=== PATIENT | male | born 1975 | race Caucasian/White ===

== ENCOUNTER 2017-08-30 22:22 | Emergency (ER) | payer MEDICAID, OTHER ==
[2017-08-30 23:37] LABS: BASO % 0.5 % (0.0-1.0); EOS # 0.2 10^3/uL (0.0-0.50); EOS % 2.6 % (0.0-3.0); HEMATOCRIT 43.4 % (42.0-52.0); HEMOGLOBIN 15.5 g/dl (14.0-18.0); IMMATURE GRANULOCYTE % 0.2 % (0-3.0); LYMPH # 2.7 10^3/uL (1.5-4.5); LYMPH % 45.4 % (24.0-44.0); MEAN CORPUSCULAR HEMOGLOBIN 31.4 pg (27.0-33.0); MEAN CORPUSCULAR HGB CONC 35.7 g/dl (32.0-36.5); MONO # 0.6 10^3/uL (0.0-0.8); MONO % 9.4 % (0.0-5.0); NEUTROPHILS # 2.5 10^3/uL (1.8-7.7); NEUTROPHILS % 41.9 % (36.0-66.0); PLATELET COUNT, AUTOMATED 259 10^3/uL (150-450); RED BLOOD COUNT 4.93 10^6/uL (4.30-6.10); RED CELL DISTRIBUTION WIDTH 12.8 % (11.5-14.5); WHITE BLOOD COUNT 5.9 10^3/uL (4.0-10.0)
[2017-08-30] MEDS: GASTROGRAFIN SOLUTION 30ML PO (23:40)
[2017-08-30 23:56] LABS: ALBUMIN 3.9 GM/DL (3.2-5.2); ALBUMIN/GLOBULIN RATIO 0.95 (1.00-1.93); ALKALINE PHOSPHATASE 70 U/L (45-117); ALT/SGPT 997 U/L (12-78); ANION GAP 8 MEQ/L (8-16); AST/SGOT 638 U/L (7-37); BILIRUBIN,DIRECT < 0.1 MG/DL (0.0-0.2); BILIRUBIN,TOTAL 0.4 MG/DL (0.2-1.0); BLOOD UREA NITROGEN 6 MG/DL (7-18); CALCIUM LEVEL 8.6 MG/DL (8.5-10.1); CARBON DIOXIDE LEVEL 26 MEQ/L (21-32); CHLORIDE LEVEL 103 MEQ/L (98-107); CREATININE FOR GFR 0.58 MG/DL (0.70-1.30); ETHYL ALCOHOL (ETHANOL) 0.285 % (0.000-0.010); GLOMERULAR FILTRATION RATE > 60.0 (>60); GLUCOSE, FASTING 95 MG/DL (70-100); LIPASE 247 U/L (73-393); SODIUM LEVEL 137 MEQ/L (136-145)
[2017-08-30] MEDS: NS 1,000 ML IV (23:57)
[2017-08-30] MEDS: METOCLOPRAMIDE INJ 10MG/2ML VIAL (J2765) IV (23:58)
[2017-08-31 00:01] LABS: POTASSIUM SERUM 5.3 MEQ/L (3.5-5.1)
[2017-08-31 00:03] LABS: LACTIC ACID SEPSIS PROTOCOL 2.2 MMOL/L (0.4-2.0)
[2017-08-31] MEDS: GASTROGRAFIN SOLUTION 30ML PO (00:18)
[2017-08-31] MEDS ORDERED: ISOVUE-370 76% 100ML VIAL (Q9967) As Ordered (00:43)
[2017-08-31 01:01] LABS: AMPHETAMINES LEVEL URINE NEGATIVE (NEGATIVE); BARBITURATES URINE NEGATIVE (NEGATIVE); BENZODIAZEPINES URINE NEGATIVE (NEGATIVE); CANNABINOIDS URINE POSITIVE (NEGATIVE); COCAINE METABOLITE URINE NEGATIVE (NEGATIVE); METHADONE URINE NEGATIVE (NEGATIVE); OPIATES URINE NEGATIVE (NEGATIVE); PHENCYCLIDINE URINE NEGATIVE (NEGATIVE)
[2017-08-31] MEDS: NS 500 ML IV (01:08)
== END 2017-08-31 05:30 | disposition home or self-care (01) ==
LOC: M ED 22:22
DX: F10.220 Alcohol dependence with intoxication, uncomplicated (principal); K52.9 Noninfective gastroenteritis and colitis, unspecified; F12.10 Cannabis abuse, uncomplicated; Z87.19 Personal history of other diseases of the digestive system; K57.92 Diverticulitis of intestine, part unspecified, without perforation or abscess without bleeding; F17.200 Nicotine dependence, unspecified, uncomplicated; Z88.8 Allergy status to other drugs, medicaments and biological substances; Z88.5 Allergy status to narcotic agent
CPT/HCPCS: Q9963

== ENCOUNTER 2017-09-20 18:22 | Emergency (ER) | payer MEDICAID ==
[2017-09-20] MEDS: PHENobarbital 30 MG TAB PO (19:25)
== END 2017-09-20 20:49 | disposition home or self-care (01) ==
LOC: M ED 18:22
DX: Z76.0 Encounter for issue of repeat prescription (principal); F32.9 Major depressive disorder, single episode, unspecified; F10.20 Alcohol dependence, uncomplicated; K21.9 Gastro-esophageal reflux disease without esophagitis; F17.200 Nicotine dependence, unspecified, uncomplicated; Z79.899 Other long term (current) drug therapy
CPT/HCPCS: 99284

== ENCOUNTER 2017-09-21 11:26 | Inpatient (IN) | payer MEDICAID, OTHER ==
[2017-09-21] MEDS: NICOTINE 21MG/24HR 1 EA TRANSDERMAL TD (09:00)
[2017-09-21] MEDS: LORazepam 2 MG TAB PO (12:55)
[2017-09-21] MEDS: cloNIDine 0.2 MG TAB PO ×2 (12:55→18:43)
[2017-09-21 13:00] LABS: BASO % 0.7 % (0.0-1.0); EOS # 0.1 10^3/uL (0.0-0.50); EOS % 2.2 % (0.0-3.0); HEMATOCRIT 40.2 % (42.0-52.0); HEMOGLOBIN 14.4 g/dl (13.5-17.5); LYMPH # 1.8 10^3/uL (1.5-4.5); LYMPH % 34.1 % (24.0-44.0); MEAN CORPUSCULAR HEMOGLOBIN 32.4 pg (27.0-33.0); MEAN CORPUSCULAR HGB CONC 35.8 g/dl (32.0-36.5); MEAN CORPUSCULAR VOLUME 90.5 fl (80.0-96.0); MONO # 0.5 10^3/uL (0.0-0.8); MONO % 9.9 % (0.0-5.0); NEUTROPHILS # 2.8 10^3/uL (1.8-7.7); NEUTROPHILS % 53.1 % (36.0-66.0); PLATELET COUNT, AUTOMATED 401 10^3/uL (150-450); RED BLOOD COUNT 4.44 10^6/uL (4.30-6.10); RED CELL DISTRIBUTION WIDTH 12.4 % (11.5-14.5); WHITE BLOOD COUNT 5.3 10^3/uL (4.0-10.0)
[2017-09-21 13:29] LABS: AMPHETAMINES LEVEL URINE NEGATIVE (NEGATIVE); BARBITURATES URINE POSITIVE (NEGATIVE); BENZODIAZEPINES URINE POSITIVE (NEGATIVE); CANNABINOIDS URINE NEGATIVE (NEGATIVE); COCAINE METABOLITE URINE NEGATIVE (NEGATIVE); METHADONE URINE NEGATIVE (NEGATIVE); OPIATES URINE NEGATIVE (NEGATIVE); PHENCYCLIDINE URINE NEGATIVE (NEGATIVE)
[2017-09-21 13:40] LABS: ALBUMIN 4.1 GM/DL (3.2-5.2); ALBUMIN/GLOBULIN RATIO 1.14 (1.00-1.93); ALKALINE PHOSPHATASE 55 U/L (45-117); ALT/SGPT 96 U/L (12-78); ANION GAP 9 MEQ/L (8-16); AST/SGOT 39 U/L (7-37); BILIRUBIN,DIRECT 0.1 MG/DL (0.0-0.2); BILIRUBIN,TOTAL 0.3 MG/DL (0.2-1.0); BLOOD UREA NITROGEN 9 MG/DL (7-18); CALCIUM LEVEL 9.2 MG/DL (8.5-10.1); CARBON DIOXIDE LEVEL 25 MEQ/L (21-32); CHLORIDE LEVEL 108 MEQ/L (98-107); CREATININE FOR GFR 0.82 MG/DL (0.70-1.30); ETHYL ALCOHOL (ETHANOL) 0.003 % (0.000-0.010); GLOMERULAR FILTRATION RATE > 60.0 (>60); GLUCOSE, FASTING 84 MG/DL (70-100); LIPASE 150 U/L (73-393); POTASSIUM SERUM 4.4 MEQ/L (3.5-5.1); SALICYLATE LEVEL < 1.7 MG/DL (5.0-30.0); SODIUM LEVEL 142 MEQ/L (136-145); THYROID STIMULATING HORMONE 0.754 uIU/ML (0.358-3.740); TOTAL PROTEIN 7.7 GM/DL (6.4-8.2)
[2017-09-21 13:42] LABS: ACETAMINOPHEN LEVEL < 2.0 UG/ML (10.0-30.0)
[2017-09-21] MEDS ORDERED: ACETAMINOPHEN TAB 650MG DOSE (2X325MG) PO (15:45)
[2017-09-21] MEDS ORDERED: MAALOX 30 ML SUSP *UDC PO (15:45)
[2017-09-21] MEDS ORDERED: MOM 30ML SUSPENSION UDC PO (15:45)
[2017-09-21] MEDS: GABAPENTIN 300 MG CAP PO ×2 (18:42→21:00)
[2017-09-21] MEDS: traZODone 100 MG TAB PO (21:00)
[2017-09-22] MEDS: cloNIDine 0.2 MG TAB PO ×2 (07:00→13:43)
[2017-09-22] MEDS: hydrOXYzine 50 MG TAB PO (07:00)
[2017-09-22] MEDS: NICOTINE 21MG/24HR 1 EA TRANSDERMAL TD (09:00)
[2017-09-22] MEDS: OMEPRAZOLE 20 MG CAP PO (09:03)
[2017-09-22] MEDS: SERTRALINE 100 MG TAB PO (09:03)
[2017-09-22] MEDS: GABAPENTIN 300 MG CAP PO ×2 (09:03→15:32)
[2017-09-22] MEDS: raNITIdine SYRUP 150 MG/10 ML UDC PO (10:52)
[2017-09-22 11:06] LABS: HEMATOCRIT 39.6 % (42.0-52.0); HEMOGLOBIN 14.1 g/dl (13.5-17.5); MEAN CORPUSCULAR HGB CONC 35.6 g/dl (32.0-36.5); MEAN CORPUSCULAR VOLUME 89.8 fl (80.0-96.0); PLATELET COUNT, AUTOMATED 428 10^3/uL (150-450); RED BLOOD COUNT 4.41 10^6/uL (4.30-6.10)
[2017-09-22 11:21] LABS: INR 0.94; PROTHROMBIN TIME 12.6 SECONDS (12.4-14.5)
[2017-09-22 11:33] LABS: ALBUMIN 4.1 GM/DL (3.2-5.2); ALBUMIN/GLOBULIN RATIO 1.14 (1.00-1.93); ALKALINE PHOSPHATASE 54 U/L (45-117); ALT/SGPT 89 U/L (12-78); AMYLASE 31 U/L (25-115); ANION GAP 9 MEQ/L (8-16); AST/SGOT 38 U/L (7-37); BILIRUBIN,TOTAL 0.5 MG/DL (0.2-1.0); BLOOD UREA NITROGEN 10 MG/DL (7-18); CALCIUM LEVEL 9.8 MG/DL (8.5-10.1); CARBON DIOXIDE LEVEL 26 MEQ/L (21-32); CHLORIDE LEVEL 104 MEQ/L (98-107); CREATININE FOR GFR 0.97 MG/DL (0.70-1.30); GLOMERULAR FILTRATION RATE > 60.0 (>60); GLUCOSE, FASTING 106 MG/DL (70-100); LIPASE 156 U/L (73-393); POTASSIUM SERUM 4.5 MEQ/L (3.5-5.1); SODIUM LEVEL 139 MEQ/L (136-145); TOTAL PROTEIN 7.7 GM/DL (6.4-8.2)
[2017-09-22 12:43] LABS: HEPATITIS B SURFACE ANTIGEN NEGATIVE (NEGATIVE)
[2017-09-22 13:00] LABS: HEPATITIS B CORE ANTIBODY IGM NEGATIVE (NEGATIVE)
[2017-09-22] MEDS ORDERED: hydrOXYzine 50 MG TAB PO (13:00)
[2017-09-22 13:10] LABS: HEPATITIS A ANTIBODY IGM NEGATIVE (NEGATIVE)
[2017-09-22] MEDS: NALTREXONE 50 MG TAB PO (13:33)
[2017-09-22 13:44] LABS: HEPATITIS C VIRUS ABY INDEX > 11.0 INDEX (<0.8)
[2017-09-22] MEDS ORDERED: QUEtiapine FUMARATE 50 MG TAB PO (21:00)
[2017-09-26 00:08] LABS: HCV RNA NAA QUALITATIVE Positive (Negative)
== END 2017-09-22 15:40 | disposition home or self-care (01) | DRG 756 ==
LOC: M ED 11:26 → M PSY 17:00
DX: F41.1 Generalized anxiety disorder (principal); R45.851 Suicidal ideations; F19.94 Other psychoactive substance use, unspecified with psychoactive substance-induced mood disorder; F43.9 Reaction to severe stress, unspecified; K21.9 Gastro-esophageal reflux disease without esophagitis; F17.210 Nicotine dependence, cigarettes, uncomplicated; R94.5 Abnormal results of liver function studies; R10.9 Unspecified abdominal pain; Z88.5 Allergy status to narcotic agent; Z79.899 Other long term (current) drug therapy

== ENCOUNTER → 2018-01-15 | Outpatient (REF) | payer OTHER ==
[2018-01-15 15:46] LABS: BASO # 0.1 10^3/uL (0.0-0.2); BASO % 0.7 % (0.0-1.0); EOS # 0.2 10^3/uL (0.0-0.50); EOS % 2.8 % (0.0-3.0); HEMOGLOBIN 14.9 g/dl (13.5-17.5); IMMATURE GRANULOCYTE % 0.1 % (0-3.0); LYMPH # 2.4 10^3/uL (1.5-4.5); LYMPH % 33.9 % (24.0-44.0); MEAN CORPUSCULAR HEMOGLOBIN 31.4 pg (27.0-33.0); MEAN CORPUSCULAR HGB CONC 34.7 g/dl (32.0-36.5); MEAN CORPUSCULAR VOLUME 90.5 fl (80.0-96.0); MONO # 0.7 10^3/uL (0.0-0.8); NEUTROPHILS # 3.7 10^3/uL (1.8-7.7); NEUTROPHILS % 52.5 % (36.0-66.0); PLATELET COUNT, AUTOMATED 346 10^3/uL (150-450); RED BLOOD COUNT 4.75 10^6/uL (4.30-6.10); RED CELL DISTRIBUTION WIDTH 14.7 % (11.5-14.5); WHITE BLOOD COUNT 7.1 10^3/uL (4.0-10.0)
[2018-01-15 16:29] LABS: ALBUMIN 3.8 GM/DL (3.2-5.2); ALBUMIN/GLOBULIN RATIO 1.09 (1.00-1.93); ALKALINE PHOSPHATASE 49 U/L (45-117); ALT/SGPT 113 U/L (12-78); ANION GAP 10 MEQ/L (8-16); AST/SGOT 39 U/L (7-37); BILIRUBIN,TOTAL 0.4 MG/DL (0.2-1.0); BLOOD UREA NITROGEN 6 MG/DL (7-18); CARBON DIOXIDE LEVEL 24 MEQ/L (21-32); CHLORIDE LEVEL 107 MEQ/L (98-107); CREATININE FOR GFR 1.03 MG/DL (0.70-1.30); FREE T4 0.92 NG/DL (0.76-1.46); GLOMERULAR FILTRATION RATE > 60.0 (>60); GLUCOSE, FASTING 123 MG/DL (70-100); POTASSIUM SERUM 3.9 MEQ/L (3.5-5.1); SODIUM LEVEL 141 MEQ/L (136-145); TOTAL PROTEIN 7.3 GM/DL (6.4-8.2)
[2018-01-18 00:08] LABS: HEPATITIS C QUANTITATION 196170 IU/mL (.)
[2018-01-22 08:08] LABS: RPR Non Reactive (Non Reactive); T PALLIDUM ANTIBODIES Positive (Negative); T PALLIDUM IMMUNOBLOT Positive (Negative)
== END ==
LOC: M SFHCPLAZ 14:17
DX: B18.2 Chronic viral hepatitis C (principal); Z20.2 Contact with and (suspected) exposure to infections with a predominantly sexual mode of transmission; K51.80 Other ulcerative colitis without complications; F41.9 Anxiety disorder, unspecified

== ENCOUNTER 2018-01-22 10:51 | Emergency (ER) | payer OTHER | END 2018-01-22 12:59 | disposition home or self-care (01) | LOC: M ED 10:51 | DX: F41.9 Anxiety disorder, unspecified (principal); R94.31 Abnormal electrocardiogram [ECG] [EKG]; M54.9 Dorsalgia, unspecified; G89.29 Other chronic pain; F17.200 Nicotine dependence, unspecified, uncomplicated; Z88.5 Allergy status to narcotic agent; Z79.899 Other long term (current) drug therapy | CPT/HCPCS: 93005 ==

== ENCOUNTER → 2018-01-22 | Outpatient (REF) | LOC: M SMT 10:17 | DX: Z02.9 Encounter for administrative examinations, unspecified (principal) ==

== ENCOUNTER → 2018-02-06 | Outpatient (CLI) | payer OTHER ==
[2018-02-06 14:21] LABS: INR 0.92; PROTHROMBIN TIME 12.5 SECONDS (12.1-14.4)
[2018-02-06 14:22] LABS: PARTIAL THROMBOPLASTIN TIME 25.2 SECONDS (25.4-37.6)
[2018-02-09 00:06] LABS: ALPHA 2-MACROGLOBULIN 106 mg/dL (110-276); ALT 117 IU/L (0-55); APOLIPOPROTEIN A-1 135 mg/dL (101-178); FIBROSIS SCORE 0.06 (0.00-0.21); GGT 120 IU/L (0-65); HAPTOGLOBIN 147 mg/dL (34-200); HEPATITIS C GENOTYPE 1b (.); NECROINFLAM SCORE 0.54 (0.00-0.17); NECROINFLAMM GRADE A2-Moderate activity (.); TOTAL BILIRUBIN 0.2 mg/dL (0.0-1.2)
== END ==
LOC: M LAB 13:37
DX: B18.2 Chronic viral hepatitis C (principal)
CPT/HCPCS: 84460

== ENCOUNTER 2018-02-15 09:10 | Day surgery (SDC) | payer OTHER ==
[~2018-02-15 09:10] MED LIST: LIDOCAINE 2% INJ 100 MG/5 ML SDV (FOR ANES.) As Ordered; PROPOFOL 200 MG/20 ML VIAL As Ordered; fentaNYL 100 MCG/2 ML INJECTION (J3010) As Ordered
[2018-02-15] MEDS ORDERED: NS 1,000 ML IV (09:15)
[2018-02-15] MEDS ORDERED: PROPOFOL 200 MG/20 ML VIAL As Ordered ×2 (11:27→11:38)
[2018-02-15] MEDS ORDERED: MIDAZOLAM INJ 2 MG/2 ML VIAL (J2250) As Ordered (11:28)
== END 2018-02-15 12:37 | disposition home or self-care (01) ==
LOC: M OPP 09:10
DX: K92.1 Melena (principal); D12.3 Benign neoplasm of transverse colon; K64.8 Other hemorrhoids; R10.13 Epigastric pain; R13.10 Dysphagia, unspecified; K29.70 Gastritis, unspecified, without bleeding; K21.9 Gastro-esophageal reflux disease without esophagitis; I10 Essential (primary) hypertension; K76.9 Liver disease, unspecified; B18.2 Chronic viral hepatitis C; M54.89 Other dorsalgia; F41.9 Anxiety disorder, unspecified; F32.9 Major depressive disorder, single episode, unspecified; R06.83 Snoring; F17.210 Nicotine dependence, cigarettes, uncomplicated; F12.10 Cannabis abuse, uncomplicated; Z88.8 Allergy status to other drugs, medicaments and biological substances; Z79.899 Other long term (current) drug therapy
CPT/HCPCS: 45380

== ENCOUNTER 2018-03-08 07:45 | Emergency (ER) | payer OTHER ==
[2018-03-08] MEDS: NS 1,000 ML IV ×4 (08:53→09:45)
[2018-03-08] MEDS: ONDANSETRON 4MG/2ML VIAL (J2405) IV ×2 (08:57)
[2018-03-08] MEDS: LORazepam 2 MG/ML VIAL (J2060) IV ×4 (08:57→09:53)
[2018-03-08] MEDS: PANTOPRAZOLE 40MG INJ (PROTONIX) (C9113) IV ×2 (08:58)
[2018-03-08 09:12] LABS: BASO % 0.6 % (0.0-1.0); EOS # 0.1 10^3/uL (0.0-0.50); EOS % 1.6 % (0.0-3.0); HEMATOCRIT 45.7 % (42.0-52.0); HEMOGLOBIN 15.9 g/dl (13.5-17.5); IMMATURE GRANULOCYTE % 0.2 % (0-3.0); LYMPH # 1.6 10^3/uL (1.5-4.5); LYMPH % 25.4 % (24.0-44.0); MEAN CORPUSCULAR HEMOGLOBIN 32.9 pg (27.0-33.0); MEAN CORPUSCULAR HGB CONC 34.8 g/dl (32.0-36.5); MEAN CORPUSCULAR VOLUME 94.4 fl (80.0-96.0); MONO # 0.8 10^3/uL (0.0-0.8); MONO % 13.1 % (0.0-5.0); NEUTROPHILS # 3.7 10^3/uL (1.8-7.7); NEUTROPHILS % 59.1 % (36.0-66.0); PLATELET COUNT, AUTOMATED 193 10^3/uL (150-450); RED BLOOD COUNT 4.84 10^6/uL (4.30-6.10); RED CELL DISTRIBUTION WIDTH 12.8 % (11.5-14.5); WHITE BLOOD COUNT 6.3 10^3/uL (4.0-10.0)
[2018-03-08 09:30] LABS: INR 0.92; PROTHROMBIN TIME 12.5 SECONDS (12.1-14.4)
[2018-03-08 09:37] LABS: ALBUMIN 3.8 GM/DL (3.2-5.2); ALBUMIN/GLOBULIN RATIO 0.93 (1.00-1.93); ALKALINE PHOSPHATASE 48 U/L (45-117); ALT/SGPT 161 U/L (12-78); ANION GAP 13 MEQ/L (8-16); AST/SGOT 103 U/L (7-37); BILIRUBIN,DIRECT 0.1 MG/DL (0.0-0.2); BILIRUBIN,TOTAL 0.4 MG/DL (0.2-1.0); BLOOD UREA NITROGEN 8 MG/DL (7-18); CALCIUM LEVEL 8.8 MG/DL (8.5-10.1); CARBON DIOXIDE LEVEL 23 MEQ/L (21-32); CHLORIDE LEVEL 107 MEQ/L (98-107); CPK CREATINE PHOSPHOKINASE 224 U/L (39-308); CREATININE FOR GFR 0.74 MG/DL (0.70-1.30); GLOMERULAR FILTRATION RATE > 60.0 (>60); GLUCOSE, FASTING 92 MG/DL (70-100); LIPASE 224 U/L (73-393); MB/CK RELATIVE INDEX 1.03 (< OR =4); POTASSIUM SERUM 3.8 MEQ/L (3.5-5.1); SODIUM LEVEL 143 MEQ/L (136-145); TOTAL PROTEIN 7.9 GM/DL (6.4-8.2); TROPONIN I < 0.02 NG/ML (< 0.10)
[2018-03-08] MEDS ORDERED: METOCLOPRAMIDE INJ 10MG/2ML VIAL (J2765) As Ordered ×2 (09:51)
[2018-03-08] MEDS: METOCLOPRAMIDE INJ 10MG/2ML VIAL (J2765) IV ×2 (09:53)
[2018-03-08] MEDS: OXAZEPAM 15 MG CAP PO ×2 (10:36)
[2018-03-08] MEDS ORDERED: ISOVUE-370 76% 100ML VIAL (Q9967) As Ordered ×2 (11:19)
[2018-03-08] MEDS: PROMETHAZINE INJ 25 MG/ML VIAL (J2550) IV ×2 (11:48)
[2018-03-08 11:55] LABS: ETHYL ALCOHOL (ETHANOL) 0.125 % (0.000-0.010)
[2018-03-08 13:05] LABS: AMPHETAMINES LEVEL URINE NEGATIVE (NEGATIVE); BARBITURATES URINE NEGATIVE (NEGATIVE); BENZODIAZEPINES URINE NEGATIVE (NEGATIVE); CANNABINOIDS URINE POSITIVE (NEGATIVE); COCAINE METABOLITE URINE NEGATIVE (NEGATIVE); METHADONE URINE NEGATIVE (NEGATIVE); OPIATES URINE NEGATIVE (NEGATIVE); PHENCYCLIDINE URINE NEGATIVE (NEGATIVE)
== END 2018-03-08 16:36 | disposition home or self-care (01) ==
LOC: M ED 07:45
DX: R10.9 Unspecified abdominal pain (principal); R11.10 Vomiting, unspecified; F10.10 Alcohol abuse, uncomplicated; K76.0 Fatty (change of) liver, not elsewhere classified; B19.20 Unspecified viral hepatitis C without hepatic coma; R56.9 Unspecified convulsions; G47.30 Sleep apnea, unspecified; Z88.5 Allergy status to narcotic agent
CPT/HCPCS: C9113

== ENCOUNTER → 2018-04-12 | Outpatient (CLI) | payer OTHER | LOC: M PAIN 11:15 | DX: M54.5 Low back pain (principal); G89.29 Other chronic pain; B18.2 Chronic viral hepatitis C; F10.10 Alcohol abuse, uncomplicated; G47.00 Insomnia, unspecified; F32.9 Major depressive disorder, single episode, unspecified; F41.9 Anxiety disorder, unspecified; K21.9 Gastro-esophageal reflux disease without esophagitis; I10 Essential (primary) hypertension; F17.210 Nicotine dependence, cigarettes, uncomplicated; Z88.5 Allergy status to narcotic agent; Z79.899 Other long term (current) drug therapy; Z86.59 Personal history of other mental and behavioral disorders; Z87.820 Personal history of traumatic brain injury | CPT/HCPCS: G0463 ==

== ENCOUNTER 2018-07-03 22:23 | Emergency (ER) | payer OTHER ==
[~2018-07-03] VITALS: Ht 175.3 cm; Wt 86.4 kg
[~2018-07-03 22:23] MED LIST changes: +/ONDA4TA PO; +/QUET25TA PO; +/TRAZ10TA PO; +ACET65TA OR; +ADDE1TAB14 PO; +ADDE1TAB20 PO; +ADDE20TA PO; +ALFALFA COMPLEX PO; +ALPR0.5T3; +AMBI12.52 PO; +AMPHETAMINE SALTS PO; +ATIV2TAB PO; +BEN1.4DI EX; +BUPR75TA5 PO; +CALC600T21 PO; +CAMPRAL PO; +CELE10TA PO; +CITA40TA PO; +CLIN300C OR; +CLON0.2T PO; +CLONI1TA PO; +DETOX PO; +ESCI20TA PO; +Folate PO; +GABA-1171; +HYDR50TA70 PO; +IBUP200T2 PO; -LIDOCAINE 2% INJ 100 MG/5 ML SDV (FOR ANES.) As Ordered; +LISI10TA4 PO; +MELO7.5S PO; +META800T82 PO; +METH-447 PO; +MOBI15TA PO; +MORP10SY PO; +MULTIVIT PO; +MULTTAB4 PO; +NEUR300C PO; +NICO21PAT TD; +NUTRIFERON PO; +OMEP40CA2 PO; +OXYC10TA97 OR; +PEPC10TA PO; +PEPC1TAB5 PO; +PRED50TA2 PO; -PROPOFOL 200 MG/20 ML VIAL As Ordered; +QUET5TAB PO; +RANI1SYP PO; +REQU0.5T PO; +SERAX PO; +SERT50TA PO; +SUBO8TA PO; +TEMA15CA2 PO; +THIA50CA PO; +TRAZ-160 PO; +TRAZ-163 PO; +TRAZ100T2 PO; +VIAGRA PO; +VITA100T60 PO; +VITA100T8; +WELL100T PO; +WELL75TA PO; +XANA0.5T PO; +XANA1TAB2 PO; +ZANA4CAP PO; +ZOLP-189 PO; +[UNRECOGNIZED DRUG - OTHER] PO; +[UNRECOGNIZED DRUG - OTHER] PO; +[UNRECOGNIZED DRUG - REMARK] PO; +ambien PO; -fentaNYL 100 MCG/2 ML INJECTION (J3010) As Ordered; +folate PO; +lioresal PO; +mvi PO; +osteo matrix PO
[2018-07-03] MEDS ORDERED: MAVY1TAB (22:29)
[2018-07-03] MEDS ORDERED: GABA-843 (22:29)
[2018-07-03] MEDS ORDERED: ALPR1TAB3 PO (22:29)
[2018-07-03] MEDS ORDERED: AMLO2.5T3 PO (22:29)
[2018-07-03 23:07] LABS: BASO # 0.1 10^3/uL (0.0-0.2); BASO % 0.7 % (0.0-1.0); EOS # 0.1 10^3/uL (0.0-0.50); EOS % 0.8 % (0.0-3.0); HEMATOCRIT 42.3 % (42.0-52.0); HEMOGLOBIN 15.1 g/dl (13.5-17.5); LYMPH # 3.9 10^3/uL (1.5-4.5); LYMPH % 40.4 % (24.0-44.0); MEAN CORPUSCULAR HEMOGLOBIN 31.9 pg (27.0-33.0); MEAN CORPUSCULAR HGB CONC 35.7 g/dl (32.0-36.5); MEAN CORPUSCULAR VOLUME 89.2 fl (80.0-96.0); MONO # 0.8 10^3/uL (0.0-0.8); MONO % 8.7 % (0.0-5.0); NEUTROPHILS # 4.8 10^3/uL (1.8-7.7); NEUTROPHILS % 49.2 % (36.0-66.0); PLATELET COUNT, AUTOMATED 364 10^3/uL (150-450); RED BLOOD COUNT 4.74 10^6/uL (4.30-6.10); WHITE BLOOD COUNT 9.7 10^3/uL (4.0-10.0)
[2018-07-03 23:12] LABS: ABG BASE EXCESS -1.4 (-2.0-2.0); ABG HCO3 22.2 MEQ/L (22.0-26.0); ABG O2 SATURATION 96.5 % (95.0-99.0); ABG PARTIAL PRESSURE CO2 34.3 mmHg (35.0-45.0); ABG PARTIAL PRESSURE O2 89.5 mmHg (75.0-100.0); ABG STANDARD HCO3 23.3 MEQ/L (22.0-26.0); ABG TOTAL CO2 23.3 MEQ/L (22.0-29.0); ABG pH (ARTERIAL) 7.429 UNITS (7.350-7.450)
[2018-07-03 23:22] LABS: INR 0.97
[2018-07-03 23:23] LABS: PARTIAL THROMBOPLASTIN TIME 25.8 SECONDS (25.4-37.6)
[2018-07-03 23:37] LABS: BLOOD UREA NITROGEN 6 MG/DL (7-18); CALCIUM LEVEL 8.8 MG/DL (8.5-10.1); CARBON DIOXIDE LEVEL 23 MEQ/L (21-32); CHLORIDE LEVEL 104 MEQ/L (98-107); CPK CREATINE PHOSPHOKINASE 120 U/L (39-308); CREATININE FOR GFR 0.78 MG/DL (0.70-1.30); GLOMERULAR FILTRATION RATE > 60.0 (>60); GLUCOSE, FASTING 87 MG/DL (70-100); MB/CK RELATIVE INDEX 1.25 (< OR =4); POTASSIUM SERUM 3.8 MEQ/L (3.5-5.1); SODIUM LEVEL 141 MEQ/L (136-145); TROPONIN I < 0.02 NG/ML (< 0.10)
[2018-07-03] MEDS ORDERED: LORazepam 2 MG/ML VIAL (J2060) IV STA (23:58)
[2018-07-04 01:03] VITALS: BP 152/90
--- NOTE | 2018-07-04 05:54 | ECGEPIP ---
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
== END 2018-07-04 01:05 | disposition home or self-care (01) ==
LOC: M ED 22:23
DX: F41.1 Generalized anxiety disorder (principal); K21.9 Gastro-esophageal reflux disease without esophagitis; I10 Essential (primary) hypertension; G89.29 Other chronic pain; M54.9 Dorsalgia, unspecified
CPT/HCPCS: 36415; 36600; 80048; 82550; 82553; 82803; 84484; 85025; 85610; 85730; 93005; 96374; 99284; J2060

== ENCOUNTER 2018-07-19 14:32 | Inpatient (IN) | payer OTHER ==
[~2018-07-19] VITALS: Ht 175.3 cm; Wt 91.1 kg
[~2018-07-19 14:32] MED LIST changes: +ALPR1TAB3 PO; +AMLO2.5T3 PO; +GABA-843; +MAVY1TAB
[2018-07-19] MEDS ORDERED: OXAZEPAM 15 MG CAP PO ONE (15:00)
[2018-07-19 15:23] LABS: HEMATOCRIT 42.9 % (42.0-52.0); HEMOGLOBIN 15.5 g/dl (13.5-17.5); MEAN CORPUSCULAR HGB CONC 36.1 g/dl (32.0-36.5); MEAN CORPUSCULAR VOLUME 88.6 fl (80.0-96.0); PLATELET COUNT, AUTOMATED 381 10^3/uL (150-450); RED BLOOD COUNT 4.84 10^6/uL (4.30-6.10); WHITE BLOOD COUNT 13.6 10^3/uL (4.0-10.0)
[2018-07-19 15:52] LABS: AMPHETAMINES LEVEL URINE NEGATIVE (NEGATIVE); BARBITURATES URINE NEGATIVE (NEGATIVE); BENZODIAZEPINES URINE NEGATIVE (NEGATIVE); CANNABINOIDS URINE NEGATIVE (NEGATIVE); COCAINE METABOLITE URINE NEGATIVE (NEGATIVE); METHADONE URINE NEGATIVE (NEGATIVE); OPIATES URINE NEGATIVE (NEGATIVE); PHENCYCLIDINE URINE NEGATIVE (NEGATIVE)
[2018-07-19 16:05] LABS: ACETAMINOPHEN LEVEL < 2.0 UG/ML (10.0-30.0); ALBUMIN 4.2 GM/DL (3.2-5.2); ALT/SGPT 43 U/L (12-78); BILIRUBIN,DIRECT 0.2 MG/DL (0.0-0.2); BILIRUBIN,TOTAL 0.5 MG/DL (0.2-1.0); BLOOD UREA NITROGEN 10 MG/DL (7-18); CALCIUM LEVEL 9.4 MG/DL (8.5-10.1); CARBON DIOXIDE LEVEL 23 MEQ/L (21-32); CHLORIDE LEVEL 102 MEQ/L (98-107); CREATININE FOR GFR 0.85 MG/DL (0.70-1.30); ETHYL ALCOHOL (ETHANOL) < 0.003 % (0.000-0.010); GLOMERULAR FILTRATION RATE > 60.0 (>60); GLUCOSE, FASTING 91 MG/DL (70-100); POTASSIUM SERUM 3.7 MEQ/L (3.5-5.1); SALICYLATE LEVEL 2.1 MG/DL (5.0-30.0); SODIUM LEVEL 136 MEQ/L (136-145); THYROID STIMULATING HORMONE 0.524 uIU/ML (0.358-3.740); TOTAL PROTEIN 7.9 GM/DL (6.4-8.2)
[2018-07-19] MEDS ORDERED: IBUP1TAB7 PO (17:51)
[2018-07-19] MEDS ORDERED: AMOX875T PO (17:51)
[2018-07-19] MEDS ORDERED: MOM 30ML SUSPENSION UDC PO PRN (18:00)
[2018-07-19] MEDS ORDERED: MAALOX 30 ML SUSP *UDC PO PRN (18:00)
[2018-07-19] MEDS: THIAMINE 100 MG TAB PO SCH (18:15)
[2018-07-19] MEDS ORDERED: SUCRALFATE SUSP 1GM/10ML UD PO ONE (18:30)
[2018-07-19] MEDS ORDERED: LORazepam 2 MG TAB PO PRN (18:30)
[2018-07-19] MEDS ORDERED: THIAMINE 100 MG TAB PO SCH (18:45)
[2018-07-19 18:46] LABS: LIPASE 201 U/L (73-393)
[2018-07-19] MEDS ORDERED: ONDANSETRON 4 MG ORAL DISINTEGRATING TAB (Q0162 PER 1MG) As Ordered ONE (18:48)
[2018-07-19] MEDS ORDERED: ONDANSETRON 4 MG ORAL DISINTEGRATING TAB (Q0162 PER 1MG) PO ONE (19:00)
[2018-07-19] MEDS ORDERED: **hydrALAZINE** 10 MG TAB PO STA (20:24)
[2018-07-19 20:30] VITALS: BP 140/110
[2018-07-19 21:18] LABS: CPK CREATINE PHOSPHOKINASE 950 U/L (39-308); MB/CK RELATIVE INDEX 0.31 (< OR =4); TROPONIN I < 0.02 NG/ML (< 0.10)
[2018-07-19] MEDS: ACETAMINOPHEN TAB 650MG DOSE (2X325MG) PO PRN (21:34)
[2018-07-19] MEDS: traZODone 50 MG TAB PO PRN (21:34)
[2018-07-19 22:37] VITALS: BP 130/104
[2018-07-19] MEDS ORDERED: cloNIDine 0.2 MG TAB PO ONE (22:45)
--- NOTE | 2018-07-20 00:53 | ECGEPIP ---
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
[2018-07-20 06:16] VITALS: BP 118/74
--- NOTE | 2018-07-20 07:07 | ECGEPIP ---
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
[2018-07-20 08:08] LABS: HEMATOCRIT 44.6 % (42.0-52.0); HEMOGLOBIN 15.9 g/dl (13.5-17.5); MEAN CORPUSCULAR HEMOGLOBIN 32.1 pg (27.0-33.0); MEAN CORPUSCULAR HGB CONC 35.7 g/dl (32.0-36.5); MEAN CORPUSCULAR VOLUME 89.9 fl (80.0-96.0); PLATELET COUNT, AUTOMATED 355 10^3/uL (150-450); RED BLOOD COUNT 4.96 10^6/uL (4.30-6.10); WHITE BLOOD COUNT 6.9 10^3/uL (4.0-10.0)
[2018-07-20 08:19] VITALS: BP 120/78
[2018-07-20] MEDS: MULTIVITAMINS/MINERALS THERAP 1 TAB PO SCH (08:19)
[2018-07-20] MEDS: THIAMINE 100 MG TAB PO SCH ×2 (08:19→19:57)
[2018-07-20] MEDS: FOLIC ACID 1 MG TAB PO SCH (08:19)
[2018-07-20] MEDS: NICOTINE 21MG/24HR 1 EA TRANSDERMAL TD SCH (08:22)
[2018-07-20 08:36] LABS: ALBUMIN 3.7 GM/DL (3.2-5.2); ALT/SGPT 39 U/L (12-78); BILIRUBIN,TOTAL 0.6 MG/DL (0.2-1.0); BLOOD UREA NITROGEN 15 MG/DL (7-18); CALCIUM LEVEL 9.2 MG/DL (8.5-10.1); CARBON DIOXIDE LEVEL 23 MEQ/L (21-32); CHLORIDE LEVEL 107 MEQ/L (98-107); CPK CREATINE PHOSPHOKINASE 588 U/L (39-308); CREATININE FOR GFR 0.83 MG/DL (0.70-1.30); GLOMERULAR FILTRATION RATE > 60.0 (>60); GLUCOSE, FASTING 110 MG/DL (70-100); POTASSIUM SERUM 4.4 MEQ/L (3.5-5.1); SODIUM LEVEL 140 MEQ/L (136-145); TOTAL PROTEIN 7.4 GM/DL (6.4-8.2)
[2018-07-20] MEDS ORDERED: amLODIPine 10 MG TAB PO SCH (09:00)
[2018-07-20] MEDS ORDERED: FOLIC ACID 1 MG TAB PO SCH (09:00)
[2018-07-20] MEDS ORDERED: LISINOPRIL 10 MG TAB PO SCH (09:00)
[2018-07-20] MEDS ORDERED: MULTIVITAMINS/MINERALS THERAP 1 TAB PO SCH (09:00)
[2018-07-20 10:30] LABS: HEPATITIS B SURFACE ANTIGEN NEGATIVE (NEGATIVE)
--- NOTE | 2018-07-20 10:54 | HPEPDOC ---
[facility] Medical History & Physical Date of Admission Jul 19, 2018 History and Physical PCP: MARY Ryder ATTENDING: Dr. Vinnie Lugo HPI: 43yoM admitted to [facility] for unspecified mood disorder, being medically examined today. The patient states he is currently on amoxicillin 875 mg by mouth twice a day filled 07/11/18 for 10 days related to dental pain. Patient is noted to have poor dentition. He states he does not have an appointment yet with a dental provider. He states he sees [facility] for primary care however he goes to Dr. Rodrigues to obtain Xanax. Denies any fevers, chills, weakness, fatigue, CHOE, CP, SOB, cough, palpitations, abdominal pain, N/V/D or changes in bowel or bladder habits. PMHx: Anxiety Depression History of SI Substance use Alcohol use IV DU Cirrhosis CT abdomen/pelvis 03/22 Diffuse fatty infiltration of the liver. Hepatitis C. Treated PEGASYS/ RIBAVIRIN 2005 GENOTYPE 1A MERYL History of pancreatitis Chronic low back pain. Seen by [facility] pain management History of syphilis. Completed treatment as per PCP. Hypertension Poor dentition PSHX: History of lumbar injections COLONOSOCPY 02/20 polyp, tubular adenoma, hemorrhoids. Dr. Apodaca. EGD 02/20 GASTRITIS, ESOPHAGEAL BIOPSY Dr. Apodaca. SOCHX: Resides in: [facility] Marital Status: Single Kids: 2 Employment: Unemployed Tobacco use: One pack per day ETOH: pt states "If I don't have Xanax...." Illicit Drugs: None IV Drug Use: History of methamphetamine, heroin, cocaine, antonella, states last used IV drugs 6 months ago. Tattoos done unprofessionally: Denies FAMHX: FATHER: 48 YRS, ALCOHOLISM MOTHER: ALIVE, HEALTHY 1 BROTHER , 1 SISTER - HEALTHY. 1 SON(S) , 1 DAUGHTER HEALTHY ROS: As noted in HPI, otherwise 11pt ROS of systems reviewed and unremarkable. PE: GEN: 43 yo M, appears older than stated age. Appears unkept. No acute distress. Alert and oriented x 3. Provides vague responses. HEENT: Normocephalic, atraumatic. Pupils are equal, round, and reactive to light. Extraocular movements are intact. No nystagmus appreciated. Sclera are nonicteric. Conjunctiva without injection. Nose midline. Nasal turbinates without bogginess. EACs both patent BL. TMs both visualized and cai with good cone of light, no bulging or erythema. No facial asymmetry. Moist mucous membranes. Dentition poor. Pharynx pink and moist, no cobblestoning. Neck supple, trachea midline. No lymphadenopathy or thyromegaly appreciated. CHEST: Regular rate and rhythm, +S1, +S2 LUNGS: Clear to auscultation bilaterally. No wheezes, rales, or rhonchi. Breathing appears symmetric and easy. Patient is speaking in full sentences. No accessory muscle use. ABD: Round, soft, non-tender, non-distended. +Bowel sounds throughout. No rebound or guarding. No costovertebral angle tenderness. EXT: Pulses 2+ bilaterally dorsalis pedis and radial. No lower extremity edema appreciated. SKIN: [place], dry, warm. Capillary refill <2sec. No rashes. NEURO: Alert and oriented x 3. Cranial nerves III-XII are intact. No focal de ficits appreciated. EKG: SINUS TACHYCARDIA LAE INDETERMINATE AXIS INCOMPLETE RIGHT BUNDLE BRANCH BLOCK STT ABN NEW C/W 07/19/18 Electronically Signed On 07-20-2018 7:06:53 EST by Didi Marte DD: Didi Marte DO 07/19/18 184 SINUS TACHYCARDIA INDETERMINATE AXIS INCOMPLETE RIGHT BUNDLE BRANCH BLOCK SIMILAR TO PRIOR ON SAME DATE Electronically Signed On 07-20-2018 0:53:20 EST by Ben Mayen DD: Ben Mayen M.D. 07/19/182040 A&P: 43yoM admitted to [facility] for unspecified mood disorder 1. Psych. Plan per Psychiatry. EKG on file. 2. Nicotine dependence. Patch available. 3. Hypertension. The patient's blood pressure was noted to be elevated on admission, the patient was given lisinopril 25 mg, Norvasc 10 mg, hydralazine 10 mg by mouth 1, clonidine 0.2 mg by mouth 1 in addition to Serax 30 mg. Plan to pt's outpt regimen of Norvasc 2.5 mg daily with hold parameter, Clonid ine 0.2 mg BID with hold parameter. Continue to monitor blood pressure. Adjust if needed. 4. Follow up with PCP on discharge. 5. Substance use. Management per psychiatry. Continue with MVI, Thiamine, and Folic Acid supplementation. 6. Cirrhosis/H/O hepatitis C. Continue mgmt as per Dr Mishra, continue outpt f/u. Recheck CMP. 7. IVDU. Patient declines HIV screening at this time. 8. History of pancreatitis. Lipase is noted to be 201 on admission. 9. Poor dentition. Patient will finish course of amoxicillin 875 mg by mouth twice a day for 10 days. Arrange outpatient follow-up with dental provider. 10. Chronic back pain. Patient follows with [facility] pain management. Staff member Hussain present throughout exam. Vital Signs Vital Signs Date Time Temp Pulse Resp B/P (MAP) Pulse Ox O2 Delivery O2 Flow Rate FiO2 07/20/18 08:47 Room Air 07/20/18 08:19 98 118/74 07/20/18 06:16 99.1 18 07/19/18 20:30 98 Laboratory Data Labs 24H Laboratory Tests 2 07/19/18 15:15: Nucleated Red Blood Cells % (auto) 0.0, Anion Gap 11, Glomerular Filtration Rate > 60.0, Calcium Level 9.4, Aspartate Amino Transf (AST/SGOT) 46H, Alanine Aminotransferase (ALT/SGPT) 43, Alkaline Phosphatase 55, Total Bilirubin 0.5, Direct Bilirubin 0.2, Total Protein 7.9, Albumin 4.2, Albumin/Globulin Ratio 1.14, Lipase 201, Thyroid Stimulating Hormone (TSH) 0.524, Salicylates Level 2.1L, Acetaminophen Level < 2.0L, Ethyl Alcohol Level < 0.003 07/19/18 15:17: Urine Amphetamines Screen NEGATIVE, Urine Benzodiazepines Screen NEGATIVE, Urine Opiates Screen NEGATIVE, Urine Methadone Screen NEGATIVE, Urine Barbiturates Screen NEGATIVE, Urine Phencyclidine Screen NEGATIVE, Urine Cocaine Metabolite Screen NEGATIVE, Urine Cannabinoids Screen NEGATIVE 07/19/18 20:41: Total Creatine Kinase 950H, Creatine Kinase MB 3.0, Creatine Kinase MB Relative Index 0.31, Troponin I < 0.02 07/20/18 08:00: Nucleated Red Blood Cells % (auto) 0.0, Anion Gap 10, Glomerular Filtration Rate > 60.0, Calcium Level 9.2, Aspartate Amino Transf (AST/SGOT) 41H, Alanine Aminotransferase (ALT/SGPT) 39, Alkaline Phosphatase 57, Total Bilirubin 0.6, Total Protein 7.4, Albumin 3.7, Albumin/Globulin Ratio 1.00, Total Creatine Kinase 588H, Blood Urea Nitrogen 15, Creatinine 0.83, Sodium Level 140, Potassium Level 4.4, Chloride Level 107, Carbon Dioxide Level 23 CBC/BMP Laboratory Tests 07/19/18 15:15 Red Blood Count 4.84, Mean Corpuscular Volume 88.6, Mean Corpuscular Hemoglobin 32.0, Mean Corpuscular Hemoglobin Concent 36.1, Red Cell Distribution Width 12.9 07/20/18 08:00 Red Blood Count 4.96, Mean Corpuscular Volume 89.9, Mean Corpuscular Hemoglobin 32.1, Mean Corpuscular Hemoglobin Concent 35.7, Red Cell Distribution Width 13.2, Calcium Level 9.2, Aspartate Amino Transf (AST/SGOT) 41 H, Alanine Amino transferase (ALT/SGPT) 39, Total Creatine Kinase 588 H, Alkaline Phosphatase 57, Total Bilirubin 0.6, Total Protein 7.4, Albumin 3.7 Home Medications Scheduled Alprazolam (Alprazolam) 1 Mg Tab, 1 MG PO BID Amlodipine Besylate (Amlodipine Besylate) 2.5 Mg Tab, 2.5 MG PO DAILY Amoxicillin (Amoxicillin) 875 Mg Tab, 875 MG PO BID FILLED 07/11/18 FOR 10 DAYS Clonidine Hydrochloride (Clonidine HCl) 0.2 Mg Tab, 0.2 MG PO BID Scheduled PRN Ibuprofen (Ibuprofen) 800 Mg Tab, 800 MG PO TID PRN for PAIN Allergies Coded Allergies: Tramadol (Verified Adverse Reaction, Intermediate, SEIZURE, 09/21/17) Rosaura Taylor Jul 20, 2018 10:54
[2018-07-20 10:58] LABS: HEPATITIS B CORE ANTIBODY IGM NEGATIVE (NEGATIVE)
[2018-07-20 11:00] LABS: HEPATITIS A ANTIBODY IGM NEGATIVE (NEGATIVE)
[2018-07-20 11:03] LABS: HEPATITIS C VIRUS ABY INDEX > 11.0 INDEX (<0.8)
[2018-07-20] MEDS ORDERED: ESCITALOPRAM OXALATE 10 MG TAB (LEXAPRO) PO ONE (11:30)
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
[2018-07-20] MEDS: hydrOXYzine 50 MG TAB PO PRN ×2 (11:58→19:57)
[2018-07-20] MEDS: AMOXICILLIN 875 MG TAB PO SCH ×2 (12:00→19:57)
[2018-07-20] MEDS: cloNIDine 0.2 MG TAB PO SCH ×2 (14:04→19:58)
[2018-07-20] MEDS: OLANZapine ORAL DISINTEGRATING TAB 5MG PO PRN (14:11)
[2018-07-20] MEDS: ACETAMINOPHEN TAB 650MG DOSE (2X325MG) PO PRN (16:51)
[2018-07-20 18:22] VITALS: BP 106/58
[2018-07-20] MEDS: traZODone 50 MG TAB PO PRN (21:06)
[2018-07-20 21:12] VITALS: BP 106/58
[2018-07-21 06:39] VITALS: BP 128/59
[2018-07-21] MEDS: hydrOXYzine 50 MG TAB PO PRN ×2 (06:45→17:15)
[2018-07-21] MEDS: NICOTINE 21MG/24HR 1 EA TRANSDERMAL TD SCH (08:04)
[2018-07-21] MEDS: AMOXICILLIN 875 MG TAB PO SCH ×2 (08:08→20:05)
[2018-07-21] MEDS: FOLIC ACID 1 MG TAB PO SCH (08:08)
[2018-07-21] MEDS: THIAMINE 100 MG TAB PO SCH ×2 (08:09→20:06)
[2018-07-21] MEDS: MULTIVITAMINS/MINERALS THERAP 1 TAB PO SCH (08:09)
[2018-07-21] MEDS: ESCITALOPRAM OXALATE 10 MG TAB (LEXAPRO) PO SCH (08:09)
[2018-07-21] MEDS: OLANZapine ORAL DISINTEGRATING TAB 5MG PO PRN (08:09)
[2018-07-21] MEDS: cloNIDine 0.2 MG TAB PO SCH ×2 (08:11→20:06)
[2018-07-21 08:12] VITALS: BP 117/77
[2018-07-21] MEDS: LORazepam 2 MG TAB PO PRN ×3 (08:15→20:05)
[2018-07-21 15:05] VITALS: BP 134/79
[2018-07-21 18:00] VITALS: BP 134/78
[2018-07-21] MEDS: traZODone 50 MG TAB PO PRN (21:49)
[2018-07-21 22:27] VITALS: BP 127/77
[2018-07-22] VITALS (8 sets, daily range): BP systolic 116–171; BP diastolic 74–108
[2018-07-22] MEDS: NICOTINE 21MG/24HR 1 EA TRANSDERMAL TD SCH (08:03)
[2018-07-22] MEDS: LORazepam 2 MG TAB PO PRN ×4 (08:08→20:43)
[2018-07-22] MEDS: THIAMINE 100 MG TAB PO SCH (08:09)
[2018-07-22] MEDS: AMOXICILLIN 875 MG TAB PO SCH ×2 (08:09→20:42)
[2018-07-22] MEDS: ESCITALOPRAM OXALATE 10 MG TAB (LEXAPRO) PO SCH (08:09)
[2018-07-22] MEDS: FOLIC ACID 1 MG TAB PO SCH (08:09)
[2018-07-22] MEDS: cloNIDine 0.2 MG TAB PO SCH ×2 (08:09→20:43)
[2018-07-22] MEDS: MULTIVITAMINS/MINERALS THERAP 1 TAB PO SCH (08:09)
[2018-07-22] MEDS: hydrOXYzine 50 MG TAB PO PRN (20:43)
[2018-07-22] MEDS: OLANZapine ORAL DISINTEGRATING TAB 5MG PO PRN (20:44)
[2018-07-22] MEDS: traZODone 50 MG TAB PO PRN (21:38)
[2018-07-23 07:01] VITALS: BP 185/89
[2018-07-23] MEDS: LORazepam 2 MG TAB PO PRN (07:04)
[2018-07-23 07:14] VITALS: BP 185/89
[2018-07-23] MEDS: NICOTINE 21MG/24HR 1 EA TRANSDERMAL TD SCH ×2 (08:44→16:35)
[2018-07-23] MEDS: ESCITALOPRAM OXALATE 10 MG TAB (LEXAPRO) PO SCH (08:49)
[2018-07-23] MEDS: FOLIC ACID 1 MG TAB PO SCH (08:49)
[2018-07-23] MEDS: cloNIDine 0.2 MG TAB PO SCH ×2 (08:49→21:06)
[2018-07-23] MEDS: MULTIVITAMINS/MINERALS THERAP 1 TAB PO SCH (08:50)
[2018-07-23] MEDS: OLANZapine ORAL DISINTEGRATING TAB 5MG PO PRN ×3 (08:50→21:06)
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
[2018-07-23] MEDS ORDERED: ESCITALOPRAM OXALATE 10 MG TAB (LEXAPRO) PO ONE (11:15)
[2018-07-23] MEDS: hydrOXYzine 50 MG TAB PO PRN ×2 (11:41→21:06)
[2018-07-23] MEDS ORDERED: LORazepam 2 MG TAB PO PRN (12:00)
[2018-07-23 12:06] VITALS: BP 125/79
[2018-07-23 13:22] VITALS: BP 122/85
[2018-07-23] MEDS: ACETAMINOPHEN TAB 650MG DOSE (2X325MG) PO PRN (15:00)
[2018-07-23 18:00] VITALS: BP 140/89
[2018-07-23] MEDS: traZODone 50 MG TAB PO PRN (21:47)
[2018-07-23 22:00] VITALS: BP 148/98
[2018-07-23] MEDS ORDERED: traZODone 50 MG TAB PO ONE (23:30)
[2018-07-24] MEDS ORDERED: QUEtiapine FUMARATE 100 MG TAB PO ONE (01:00)
[2018-07-24] MEDS: OLANZapine ORAL DISINTEGRATING TAB 5MG PO PRN ×3 (02:27→17:51)
[2018-07-24] MEDS: hydrOXYzine 50 MG TAB PO PRN ×2 (02:27→17:51)
[2018-07-24 06:37] VITALS: BP 140/98
[2018-07-24 08:32] VITALS: BP 121/96
[2018-07-24] MEDS: FOLIC ACID 1 MG TAB PO SCH (08:37)
[2018-07-24] MEDS: ESCITALOPRAM OXALATE 10 MG TAB (LEXAPRO) PO SCH (08:38)
[2018-07-24] MEDS: MULTIVITAMINS/MINERALS THERAP 1 TAB PO SCH (08:38)
[2018-07-24] MEDS: cloNIDine 0.2 MG TAB PO SCH ×2 (08:38→20:30)
[2018-07-24] MEDS: NICOTINE 21MG/24HR 1 EA TRANSDERMAL TD SCH (08:39)
[2018-07-24] MEDS: ACETAMINOPHEN TAB 650MG DOSE (2X325MG) PO PRN (08:40)
--- NOTE | 2018-07-24 09:52 | MHIPN ---
DATE OF SERVICE: 07/21/2018 The patient today states that he is not depressed. He says "I'm just so anxious." he said he does not sleep good because he was having restless leg problem . He is denying that he is not suicidal. MENTAL STATUS EXAMINATION: He is alert and oriented times three. Eye contact fair. He is verbally spontaneous. There is no formal thought disorder noted. Mood is anxious. Affect full range and appropriate. He is not psychotic. He is denying suicidal or homicidal ideation. Concentration is fair. Memory intact. Insight and judgment is fair. DIAGNOSES: Anxiety, unspecified. Rule out panic attacks verus agoraphobia. Rule out substance induced anxiety. Rule out posttraumatic stress disorder (PTSD). Depression, unspecified. Alcohol use disorder. Xanax use disorder. Cannabis use disorder. History of cocaine use disorder. History of opioid use disorder. TREATMENT PLAN: We will further monitor the patient for his continued anxiety and we will continue to titrate medications as indicated. ATD
--- NOTE | 2018-07-24 09:59 | MHIPN ---
DATE: 07/22/2018 The patient states that he slept better last night. Denies being suicidal. He feels that his anxiety has lessened at this point and he is feeling less depressed. MENTAL STATUS EXAMINATION: He is alert and oriented times three. Eye contact is fair. Psychomotor activity is normal. There is no formal thought disorder noted. Mood is less anxious and depressed. Affect is constricted but appropriate to his mood. He is not psychotic. Denies suicidal or homicidal ideation. Concentration is fair. Memory intact. Insight and judgment fair. DIAGNOSES: 1. Anxiety, unspecified. 2. Rule out panic attacks without agoraphobia. 3. Rule out substance-induced anxiety. 4. Rule out posttraumatic stress disorder (PTSD). 5. Depression, unspecified. 6. Alcohol use disorder. 7. Xanax use disorder. 8. Cannabis use disorder. 9. History of cocaine use disorder. 10. History of opioid use disorder. TREATMENT PLAN: We will continue to further evaluate and monitor the patient for continued elevation and stabilization of his mood and continued lessening of his anxiety and continued resolution of suicidal ideation. We will continue to monitor the patient, titrate his medications as indicated.
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
[2018-07-24] MEDS: NALTREXONE 50 MG TAB PO SCH ×2 (11:21→20:29)
[2018-07-24 11:25] VITALS: BP 132/80
[2018-07-24] MEDS: PROPRANOLOL 10 MG TAB PO SCH ×3 (11:25→20:30)
[2018-07-24 18:00] VITALS: BP 123/70
[2018-07-24] MEDS: OLANZapine 10 MG TAB PO SCH (20:30)
[2018-07-25 06:00] VITALS: BP 134/78
[2018-07-25] MEDS: ESCITALOPRAM OXALATE 10 MG TAB (LEXAPRO) PO SCH (08:10)
[2018-07-25] MEDS: FOLIC ACID 1 MG TAB PO SCH (08:10)
[2018-07-25] MEDS: PROPRANOLOL 10 MG TAB PO SCH ×3 (08:11→21:01)
[2018-07-25] MEDS: NALTREXONE 50 MG TAB PO SCH ×2 (08:11→20:59)
[2018-07-25] MEDS: MULTIVITAMINS/MINERALS THERAP 1 TAB PO SCH (08:11)
[2018-07-25] MEDS: cloNIDine 0.2 MG TAB PO SCH ×2 (08:11→21:00)
[2018-07-25] MEDS: NICOTINE 21MG/24HR 1 EA TRANSDERMAL TD SCH (08:11)
[2018-07-25] MEDS: OLANZapine ORAL DISINTEGRATING TAB 5MG PO PRN ×3 (08:14→21:00)
[2018-07-25] MEDS: hydrOXYzine 50 MG TAB PO PRN ×3 (09:46→22:43)
[2018-07-25] MEDS: ACETAMINOPHEN TAB 650MG DOSE (2X325MG) PO PRN (09:47)
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
[2018-07-25 18:00] VITALS: BP 120/70
[2018-07-25] MEDS: OLANZapine 10 MG TAB PO SCH (21:00)
[2018-07-25] MEDS: traZODone 50 MG TAB PO PRN (21:00)
[2018-07-25] MEDS: rOPINIRole 1MG TAB PO SCH (21:07)
[2018-07-26] MEDS: QUEtiapine FUMARATE 200 MG TAB PO PRN (00:18)
[2018-07-26] MEDS: OLANZapine ORAL DISINTEGRATING TAB 5MG PO PRN ×3 (03:51→18:23)
[2018-07-26 06:51] VITALS: BP 117/66
[2018-07-26] MEDS: NICOTINE 21MG/24HR 1 EA TRANSDERMAL TD SCH (09:00)
[2018-07-26] MEDS: hydrOXYzine 50 MG TAB PO PRN ×3 (09:11→22:49)
[2018-07-26] MEDS: NALTREXONE 50 MG TAB PO SCH ×2 (09:11→21:31)
[2018-07-26] MEDS: ACETAMINOPHEN TAB 650MG DOSE (2X325MG) PO PRN (09:11)
[2018-07-26] MEDS: MULTIVITAMINS/MINERALS THERAP 1 TAB PO SCH (09:11)
[2018-07-26] MEDS: ESCITALOPRAM OXALATE 10 MG TAB (LEXAPRO) PO SCH (09:12)
[2018-07-26] MEDS: FOLIC ACID 1 MG TAB PO SCH (09:12)
[2018-07-26] MEDS: PROPRANOLOL 10 MG TAB PO SCH ×3 (09:14→21:32)
[2018-07-26] MEDS: cloNIDine 0.2 MG TAB PO SCH ×2 (09:14→21:31)
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
[2018-07-26 18:00] VITALS: BP 119/80
[2018-07-26] MEDS: OLANZapine 10 MG TAB PO SCH (21:00)
[2018-07-26] MEDS: rOPINIRole 1MG TAB PO SCH (21:55)
[2018-07-27] MEDS: QUEtiapine FUMARATE 200 MG TAB PO PRN ×2 (00:20→21:23)
[2018-07-27] MEDS: ACETAMINOPHEN TAB 650MG DOSE (2X325MG) PO PRN ×2 (02:17→11:25)
[2018-07-27 06:43] VITALS: BP 121/67
[2018-07-27] MEDS: NICOTINE 21MG/24HR 1 EA TRANSDERMAL TD SCH (08:01)
[2018-07-27] MEDS: MULTIVITAMINS/MINERALS THERAP 1 TAB PO SCH (08:06)
[2018-07-27] MEDS: FOLIC ACID 1 MG TAB PO SCH (08:06)
[2018-07-27] MEDS: cloNIDine 0.2 MG TAB PO SCH ×2 (08:06→20:29)
[2018-07-27] MEDS: ESCITALOPRAM OXALATE 10 MG TAB (LEXAPRO) PO SCH (08:06)
[2018-07-27] MEDS: PROPRANOLOL 10 MG TAB PO SCH ×3 (08:06→20:31)
[2018-07-27] MEDS: NALTREXONE 50 MG TAB PO SCH ×2 (08:06→20:30)
[2018-07-27] MEDS: hydrOXYzine 50 MG TAB PO PRN ×3 (08:07→21:23)
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
[2018-07-27] MEDS: OLANZapine ORAL DISINTEGRATING TAB 5MG PO PRN ×2 (11:26→18:51)
[2018-07-27 18:00] VITALS: BP 118/78
[2018-07-27] MEDS: rOPINIRole 1MG TAB PO SCH (20:29)
[2018-07-27] MEDS: DOXEPIN 25 MG CAP PO SCH (20:30)
[2018-07-28 06:42] VITALS: BP 144/94
[2018-07-28] MEDS: cloNIDine 0.2 MG TAB PO SCH ×2 (08:31→20:27)
[2018-07-28] MEDS: ESCITALOPRAM OXALATE 10 MG TAB (LEXAPRO) PO SCH (08:31)
[2018-07-28] MEDS: hydrOXYzine 50 MG TAB PO PRN ×3 (08:32→22:36)
[2018-07-28] MEDS: ACETAMINOPHEN TAB 650MG DOSE (2X325MG) PO PRN (08:32)
[2018-07-28] MEDS: PROPRANOLOL 10 MG TAB PO SCH ×3 (08:32→20:26)
[2018-07-28] MEDS: NALTREXONE 50 MG TAB PO SCH ×2 (08:32→20:26)
[2018-07-28] MEDS: FOLIC ACID 1 MG TAB PO SCH (08:32)
[2018-07-28] MEDS: MULTIVITAMINS/MINERALS THERAP 1 TAB PO SCH (08:33)
[2018-07-28] MEDS: NICOTINE 21MG/24HR 1 EA TRANSDERMAL TD SCH (08:34)
[2018-07-28] MEDS: OLANZapine ORAL DISINTEGRATING TAB 5MG PO PRN ×2 (13:17→22:37)
[2018-07-28 18:44] VITALS: BP 126/80
[2018-07-28] MEDS: rOPINIRole 1MG TAB PO SCH (20:26)
[2018-07-28] MEDS: DOXEPIN 25 MG CAP PO SCH (22:36)
[2018-07-28] MEDS: QUEtiapine FUMARATE 200 MG TAB PO PRN (22:36)
[2018-07-29 06:10] VITALS: BP 119/68
[2018-07-29] MEDS: NALTREXONE 50 MG TAB PO SCH ×2 (08:19→20:04)
[2018-07-29] MEDS: ESCITALOPRAM OXALATE 10 MG TAB (LEXAPRO) PO SCH (08:20)
[2018-07-29] MEDS: hydrOXYzine 50 MG TAB PO PRN ×3 (08:20→22:22)
[2018-07-29] MEDS: cloNIDine 0.2 MG TAB PO SCH ×2 (08:21→20:04)
[2018-07-29] MEDS: NICOTINE 21MG/24HR 1 EA TRANSDERMAL TD SCH (08:22)
[2018-07-29] MEDS: PROPRANOLOL 10 MG TAB PO SCH ×3 (08:22→20:04)
[2018-07-29] MEDS: FOLIC ACID 1 MG TAB PO SCH (08:22)
[2018-07-29] MEDS: MULTIVITAMINS/MINERALS THERAP 1 TAB PO SCH (08:22)
[2018-07-29] MEDS: OLANZapine ORAL DISINTEGRATING TAB 5MG PO PRN (12:49)
[2018-07-29 18:00] VITALS: BP 114/74
[2018-07-29] MEDS: rOPINIRole 1MG TAB PO SCH (20:05)
[2018-07-29] MEDS: QUEtiapine FUMARATE 200 MG TAB PO PRN (22:20)
[2018-07-29] MEDS: DOXEPIN 25 MG CAP PO SCH (22:20)
[2018-07-30 06:00] VITALS: BP 136/81
[2018-07-30] MEDS: hydrOXYzine 50 MG TAB PO PRN ×3 (06:20→21:57)
[2018-07-30] MEDS: MULTIVITAMINS/MINERALS THERAP 1 TAB PO SCH (08:44)
[2018-07-30] MEDS: FOLIC ACID 1 MG TAB PO SCH (08:44)
[2018-07-30] MEDS: OLANZapine ORAL DISINTEGRATING TAB 5MG PO PRN ×2 (08:44→20:20)
[2018-07-30] MEDS: PROPRANOLOL 10 MG TAB PO SCH ×3 (08:44→23:13)
[2018-07-30] MEDS: NALTREXONE 50 MG TAB PO SCH ×2 (08:44→23:16)
[2018-07-30] MEDS: cloNIDine 0.2 MG TAB PO SCH ×2 (08:44→23:15)
[2018-07-30] MEDS: ESCITALOPRAM OXALATE 10 MG TAB (LEXAPRO) PO SCH (08:44)
[2018-07-30] MEDS: NICOTINE 21MG/24HR 1 EA TRANSDERMAL TD SCH (08:44)
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
[2018-07-30 18:11] VITALS: BP 119/87
[2018-07-30] MEDS: QUEtiapine FUMARATE 200 MG TAB PO PRN (21:56)
[2018-07-30] MEDS: DOXEPIN 25 MG CAP PO SCH (21:57)
[2018-07-30] MEDS: rOPINIRole 2MG TAB PO SCH (23:14)
[2018-07-31] MEDS: PROPRANOLOL 10 MG TAB PO SCH ×3 (08:17→20:03)
[2018-07-31] MEDS: NALTREXONE 50 MG TAB PO SCH ×2 (08:17→20:03)
[2018-07-31] MEDS: MULTIVITAMINS/MINERALS THERAP 1 TAB PO SCH (08:18)
[2018-07-31] MEDS: FOLIC ACID 1 MG TAB PO SCH (08:18)
[2018-07-31] MEDS: ESCITALOPRAM OXALATE 10 MG TAB (LEXAPRO) PO SCH (08:18)
[2018-07-31] MEDS: cloNIDine 0.2 MG TAB PO SCH ×2 (08:18→20:03)
[2018-07-31] MEDS: hydrOXYzine 50 MG TAB PO PRN ×3 (08:19→20:02)
[2018-07-31] MEDS: NICOTINE 21MG/24HR 1 EA TRANSDERMAL TD SCH (08:19)
[2018-07-31 08:20] VITALS: BP 121/84
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
[2018-07-31 18:13] VITALS: BP 115/62
[2018-07-31] MEDS: OLANZapine ORAL DISINTEGRATING TAB 5MG PO PRN (18:15)
[2018-07-31] MEDS: DOXEPIN 25 MG CAP PO SCH (20:04)
[2018-07-31] MEDS: rOPINIRole 2MG TAB PO SCH (21:39)
[2018-07-31] MEDS: QUEtiapine FUMARATE 200 MG TAB PO PRN (22:24)
[2018-08-01 06:00] VITALS: BP 140/78
[2018-08-01] MEDS: hydrOXYzine 50 MG TAB PO PRN ×2 (07:36→13:59)
[2018-08-01] MEDS: NICOTINE 21MG/24HR 1 EA TRANSDERMAL TD SCH (08:51)
[2018-08-01] MEDS: NALTREXONE 50 MG TAB PO SCH (08:52)
[2018-08-01 08:53] VITALS: BP 131/88
[2018-08-01] MEDS: cloNIDine 0.2 MG TAB PO SCH (08:53)
[2018-08-01] MEDS: PROPRANOLOL 10 MG TAB PO SCH (08:54)
[2018-08-01] MEDS: ESCITALOPRAM OXALATE 10 MG TAB (LEXAPRO) PO SCH (08:54)
[2018-08-01] MEDS: MULTIVITAMINS/MINERALS THERAP 1 TAB PO SCH (08:54)
[2018-08-01] MEDS: FOLIC ACID 1 MG TAB PO SCH (08:54)
[2018-08-01] MEDS: OLANZapine ORAL DISINTEGRATING TAB 5MG PO PRN (08:55)
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
[2018-08-01] MEDS ORDERED: PROP10TAB PO (09:28)
[2018-08-01] MEDS ORDERED: ZYPR10TA PO (09:28)
[2018-08-01] MEDS ORDERED: ESCI10TA2 PO (09:28)
[2018-08-01] MEDS ORDERED: NALT50TA4 PO (09:28)
[2018-08-01] MEDS ORDERED: HYDRO50TAB PO (09:28)
[2018-08-01] MEDS ORDERED: DOXE25CA PO (09:28)
[2018-08-01] MEDS ORDERED: REQU2TAB3 PO (09:28)
== END 2018-08-01 14:20 | disposition home or self-care (01) | DRG 756 ==
LOC: M ED 14:32 → M ED INP 17:48 → M PSY 20:19
PROVIDERS: ADMIT Psychiatry & Neurology Psychiatry; ATTEND Psychiatry & Neurology Psychiatry
DX: F41.1 Generalized anxiety disorder (principal); K74.69 Other cirrhosis of liver; R45.851 Suicidal ideations; I10 Essential (primary) hypertension; M54.5 Low back pain; F10.10 Alcohol abuse, uncomplicated; F12.90 Cannabis use, unspecified, uncomplicated; F32.9 Major depressive disorder, single episode, unspecified; Z79.899 Other long term (current) drug therapy; B18.2 Chronic viral hepatitis C; F17.200 Nicotine dependence, unspecified, uncomplicated; Z88.8 Allergy status to other drugs, medicaments and biological substances

== ENCOUNTER → 2018-10-08 | Outpatient (REF) | payer OTHER ==
[~2018-10-08] MED LIST changes: -/ONDA4TA PO; -/QUET25TA PO; -/TRAZ10TA PO; +AMOX875T PO; +DOXE25CA PO; +ESCI10TA2 PO; +HYDRO50TAB PO; +IBUP1TAB7 PO; +NALT50TA4 PO; +ONDA-1 PO; +PROP10TA55 PO; +REQU2TAB3 PO; +SERO1TAB3 PO; +SERT-141 PO; -SERT50TA PO; +TRAZ1TAB25 PO; +ZYPR10TA PO
== END ==
LOC: M SFHCPLAZ 12:59
PROVIDERS: ATTEND Internal Medicine Infectious Disease
DX: B18.2 Chronic viral hepatitis C (principal)

== ENCOUNTER 2019-01-03 23:05 | Emergency (ER) | payer OTHER ==
[~2019-01-03] VITALS: Ht 175.3 cm; Wt 98.8 kg
[~2019-01-03 23:05] MED LIST changes: +HYDR1TAB33 PO; -HYDRO50TAB PO; -TRAZ-160 PO; +TRAZ-252 PO
[2019-01-03] MEDS ORDERED: NS 1,000 ML IV ONE (23:30)
[2019-01-04 00:40] LABS: BASO % 0.6 % (0.0-1.0); EOS # 0.2 10^3/uL (0.0-0.50); EOS % 2.8 % (0.0-3.0); HEMOGLOBIN 14.4 g/dl (13.5-17.5); LYMPH # 2.7 10^3/uL (1.5-4.5); MEAN CORPUSCULAR HEMOGLOBIN 30.4 pg (27.0-33.0); MEAN CORPUSCULAR HGB CONC 34.3 g/dl (32.0-36.5); MEAN CORPUSCULAR VOLUME 88.8 fl (80.0-96.0); MONO # 0.4 10^3/uL (0.0-0.8); MONO % 6.3 % (0.0-5.0); NEUTROPHILS # 3.1 10^3/uL (1.8-7.7); NEUTROPHILS % 48.1 % (36.0-66.0); PLATELET COUNT, AUTOMATED 333 10^3/uL (150-450); RED BLOOD COUNT 4.73 10^6/uL (4.30-6.10); WHITE BLOOD COUNT 6.5 10^3/uL (4.0-10.0)
--- NOTE | 2019-01-04 01:11 | REPVR ---
EXAM: CT Head Without Contrast EXAM DATE/TIME: 01/03/2019 11:19 PM CLINICAL HISTORY: 43 years old, male; Injury or trauma; Fall; Initial encounter; Concussion / head injury; Additional info: Altered mental status TECHNIQUE: Imaging protocol: Computed tomography images of the head without contrast. Radiation optimization: All CT scans at this facility use at least one of these dose optimization techniques: automated exposure control; mA and/or kV adjustment per patient size (includes targeted exams where dose is matched to clinical indication); or iterative reconstruction. COMPARISON: CT Head without contrast 04/01/2012 10:06 PM FINDINGS: Brain: No CT evidence of acute intracranial hemorrhage or acute territorial infarction. No significant mass effect or midline shift. Basal cisterns patent. Ventricles: Normal in size and configuration. Bones/joints: No acute osseous abnormality. Sinuses: Grossly unremarkable. Mastoid air cells: Grossly unremarkable. Soft tissues: Grossly unremarkable. IMPRESSION: No CT evidence of acute intracranial pathology. Electronically signed by: Asad Dye On 01/04/2019 01:11:05 AM
--- NOTE | 2019-01-04 01:17 | REPVR ---
EXAM: CT Cervical Spine Without Contrast EXAM DATE/TIME: 01/03/2019 11:19 PM CLINICAL HISTORY: 43 years old, male; Injury or trauma; Fall; Initial encounter; Concussion /head injury; Additional info: AMS, ? trauma TECHNIQUE: Imaging protocol: Computed tomography images of the cervical spine without contrast. Coronal and sagittal reformatted images were created and reviewed. Radiation optimization: All CT scans at this facility use at least one of these dose optimization techniques: automated exposure control; mA and/or kV adjustment per patient size (includes targeted exams where dose is matched to clinical indication); or iterative reconstruction. COMPARISON: No relevant prior studies available. FINDINGS: Vertebrae: Straightening of the normal cervical lordosis. Alignment anatomic. No CT evidence of acute fracture, dislocation or subluxation. Vertebral body heights maintained. Discs/Spinal canal/Neural foramina: Intervertebral disc spaces preserved. No significant spinal canal or neural foraminal stenosis. Soft tissues: Grossly unremarkable. Lungs: Grossly unremarkable. IMPRESSION: 1. No CT evidence of acute cervical spine traumatic injury. 2. Additional findings, as above. Electronically signed by: Asad Dye On 01/04/2019 01:17:35 AM
[2019-01-04 01:26] LABS: ACETAMINOPHEN LEVEL < 2.0 UG/ML (10.0-30.0); ALBUMIN 3.8 GM/DL (3.2-5.2); ALT/SGPT 38 U/L (12-78); BILIRUBIN,DIRECT < 0.1 MG/DL (0.0-0.2); BILIRUBIN,TOTAL 0.2 MG/DL (0.2-1.0); BLOOD UREA NITROGEN 8 MG/DL (7-18); CALCIUM LEVEL 8.4 MG/DL (8.5-10.1); CARBON DIOXIDE LEVEL 23 MEQ/L (21-32); CHLORIDE LEVEL 112 MEQ/L (98-107); CK-MB VALUE MASS 1.2 NG/ML (<3.6); CPK CREATINE PHOSPHOKINASE 201 U/L (39-308); CREATININE FOR GFR 0.59 MG/DL (0.70-1.30); ETHYL ALCOHOL (ETHANOL) 0.315 % (0.000-0.010); GLOMERULAR FILTRATION RATE > 60.0 (>60); GLUCOSE, FASTING 102 MG/DL (70-100); POTASSIUM SERUM 4.4 MEQ/L (3.5-5.1); SALICYLATE LEVEL 3.6 MG/DL (5.0-30.0); SODIUM LEVEL 146 MEQ/L (136-145); THYROID STIMULATING HORMONE 0.478 uIU/ML (0.358-3.740); TROPONIN I < 0.02 NG/ML (< 0.10)
[2019-01-04 08:28] VITALS: BP 140/72
--- NOTE | 2019-01-04 22:14 | ECGEPIP ---
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
== END 2019-01-04 08:30 | disposition home or self-care (01) ==
LOC: M ED 23:05
DX: F10.229 Alcohol dependence with intoxication, unspecified (principal); Y90.1 Blood alcohol level of 20-39 mg/100 ml; I45.19 Other right bundle-branch block; Z79.899 Other long term (current) drug therapy; Z88.5 Allergy status to narcotic agent
CPT/HCPCS: 36415; 70450; 71045; 72125; 80048; 80076; 82550; 82553; 84443; 85025; 93005; 93041; 94760; 99285; G0480

== ENCOUNTER 2019-02-15 22:49 | Emergency (ER) | payer OTHER ==
[~2019-02-15] VITALS: Ht 175.3 cm; Wt 5.5 kg
[2019-02-15 23:13] VITALS: BP 150/92
[2019-02-16] MEDS ORDERED: ALPR1TAB3 PO (02:10)
[2019-02-16] MEDS ORDERED: CLINDAMYCIN 150 MG CAP PO ONE (02:30)
[2019-02-16] MEDS ORDERED: KETOROLAC 60 MG/2 ML VIAL (J1885) IM ONE (02:30)
[2019-02-16] MEDS ORDERED: CLEO300C2 PO (02:35)
[2019-02-16] MEDS ORDERED: IBUP80TA PO (02:35)
== END 2019-02-16 02:44 | disposition home or self-care (01) ==
LOC: M ED 22:49
DX: S02.5XXA Fracture of tooth (traumatic), initial encounter for closed fracture (principal); X58.XXXA Exposure to other specified factors, initial encounter; Y92.89 Other specified places as the place of occurrence of the external cause; F41.1 Generalized anxiety disorder; Z88.5 Allergy status to narcotic agent; F17.210 Nicotine dependence, cigarettes, uncomplicated
CPT/HCPCS: 96372; 99283; J1885

== ENCOUNTER 2019-04-10 14:32 | Emergency (ER) | payer OTHER ==
[~2019-04-10] VITALS: Ht 175.3 cm; Wt 97.2 kg
[~2019-04-10 14:32] MED LIST changes: +CLEO300C2 PO; +IBUP80TA PO; +OMEP40CA97 PO
[2019-04-10] MEDS ORDERED: NS 1,000 ML IV ONE (15:00)
[2019-04-10] MEDS ORDERED: KETOROLAC 30 MG/ML VIAL (J1885) IV ONE (15:00)
[2019-04-10] MEDS ORDERED: LABETALOL HCL 100 MG/20 ML VIAL IV STA (15:01)
[2019-04-10] MEDS ORDERED: HYDROMORPHONE HCL 0.5 MG/ 0.5 ML SYRINGE (J1170 PER 1) IV ONE (15:45)
--- NOTE | 2019-04-10 15:56 | REP ---
Left rib series: Six views including AP chest x-ray: History: Pain. Comparison chest x-ray: January 04, 2019. Findings: AP chest x-ray shows no evidence of pneumothorax or hemothorax. However, the mediastinum appears widened with mass effect against the left lateral wall of the trachea and shift of the trachea to the right. This raises a question mediastinal hematoma. Heart is not enlarged. Lung bonilla are free of infiltrate. There is an acute fracture the left lateral 7th rib lightly displaced. There is a left posterolateral 8th rib fracture as well although this has the appearance of periosteal reaction suggesting healing. No other acute rib fracture is seen. Impression: Left lateral 7th rib fracture appears acute. A healing fracture left posterolateral 8th rib. Evidence of mediastinal widening and shift of the trachea. Recommend chest CT with IV contrast. Findings were telephoned to the referring provider at the time of this interpretation. Electronically Signed by Srinivas Deshpande MD 04/10/2019 03:48 P
[2019-04-10] MEDS ORDERED: ISOVUE-370 76% 100ML VIAL (Q9967) As Ordered ONE (16:00)
--- NOTE | 2019-04-10 17:08 | REP ---
CT chest with IV contrast: History: Tracheal deviation on plain radiographs. Injury in a fall. CT contrast dose: 75 ml of intravenous Isovue 370. CT findings: There is no evidence of pneumothorax or hemothorax. There is some plate-like atelectasis in the left lower lobe and right lower lobe of the lungs. There is no CT evidence of mediastinal hematoma. Thoracic aorta enhances homogeneously and is normal in course and caliber. Pulmonary arterial tree appears intact. No filling defects is seen. No mass or adenopathy is observed. There is moderate diffuse fatty infiltration of the liver noted incidentally. There is mild motion artifact during the scan ring scanning at the level of the lower rib cage. The left anterolateral 7th rib fracture is seen. There is evidence of an old healed rib fracture of the lateral 8th rib. No other fractures seen. Impression: 1. Left lateral 7th rib fracture seen. 2. Diffuse fatty infiltration of the liver. 3. No mediastinal widening or hematoma seen. No vascular injury noted. 4. Mild bibasilar plate-like atelectasis. Electronically Signed by Srinivas Deshpande MD 04/10/2019 07:16 P
[2019-04-10] MEDS ORDERED: NORC1TAB7 PO (17:22)
[2019-04-10 17:59] VITALS: BP 158/68
== END 2019-04-10 18:05 | disposition home or self-care (01) ==
LOC: M ED 14:32
DX: S22.32XA Fracture of one rib, left side, initial encounter for closed fracture (principal); W19.XXXA Unspecified fall, initial encounter; Y92.89 Other specified places as the place of occurrence of the external cause; Y93.9 Activity, unspecified; Y99.9 Unspecified external cause status; I10 Essential (primary) hypertension; E11.9 Type 2 diabetes mellitus without complications; F10.129 Alcohol abuse with intoxication, unspecified; F43.10 Post-traumatic stress disorder, unspecified; F17.218 Nicotine dependence, cigarettes, with other nicotine-induced disorders; Z88.0 Allergy status to penicillin
CPT/HCPCS: 71101; 71260; 99284; J1170; J1885; Q9967

== ENCOUNTER → 2020-01-30 | Outpatient (REF) | payer OTHER ==
[~2020-01-30] MED LIST changes: +NORC1TAB7 PO; -TRAZ-163 PO; +TRAZ-257 PO
[2020-01-30 19:59] LABS: BASO % 0.7 % (0.0-1.0); EOS # 0.3 10^3/uL (0.0-0.5); EOS % 4.8 % (0.0-3.0); HEMATOCRIT 42.5 % (42.0-52.0); HEMOGLOBIN 14.7 g/dl (13.5-17.5); LYMPH # 2.7 10^3/uL (1.5-5.0); LYMPH % 45.4 % (24.0-44.0); MEAN CORPUSCULAR HEMOGLOBIN 32.2 pg (27.0-33.0); MEAN CORPUSCULAR HGB CONC 34.6 g/dl (32.0-36.5); MEAN CORPUSCULAR VOLUME 93.2 fl (80.0-96.0); MONO # 0.7 10^3/uL (0.0-0.8); MONO % 11.8 % (0.0-5.0); NEUTROPHILS # 2.2 10^3/uL (1.5-8.5); NEUTROPHILS % 37.1 % (36.0-66.0); PLATELET COUNT, AUTOMATED 323 10^3/uL (150-450); RED BLOOD COUNT 4.56 10^6/uL (4.30-6.10); WHITE BLOOD COUNT 5.9 10^3/uL (4.0-10.0)
[2020-01-30 20:13] LABS: ALBUMIN 3.9 GM/DL (3.2-5.2); ALT/SGPT 42 U/L (12-78); BILIRUBIN,TOTAL 0.5 MG/DL (0.2-1.0); BLOOD UREA NITROGEN 7 MG/DL (7-18); CALCIUM LEVEL 9.4 MG/DL (8.5-10.1); CARBON DIOXIDE LEVEL 25 MEQ/L (21-32); CHLORIDE LEVEL 106 MEQ/L (98-107); CHOLESTEROL LEVEL 192 MG/DL (<200); CHOLESTEROL RISK RATIO 4.465 (<5); CREATININE FOR GFR 0.77 MG/DL (0.70-1.30); FREE T4 1.16 NG/DL (0.76-1.46); GLOMERULAR FILTRATION RATE > 60.0 (>60); GLUCOSE, FASTING 86 MG/DL (70-100); HDL CHOLESTEROL 43 MG/DL (>40); LDL CHOLESTEROL 127 MG/DL (<100); NON-HDL-C 149 MG/DL; POTASSIUM SERUM 4.2 MEQ/L (3.5-5.1); SODIUM LEVEL 139 MEQ/L (136-145); TOTAL PROTEIN 7.2 GM/DL (6.4-8.2); TRIGLYCERIDES LEVEL 112 MG/DL (<150)
[2020-01-30 20:48] LABS: TOTAL 25(OH) VITAMIN D 31.8 NG/ML (30.0-100.0)
== END ==
LOC: M LAB REF 18:55
PROVIDERS: ATTEND Physician Assistant
DX: H91.93 Unspecified hearing loss, bilateral (principal); G40.909 Epilepsy, unspecified, not intractable, without status epilepticus; F10.10 Alcohol abuse, uncomplicated; Z72.0 Tobacco use; F41.8 Other specified anxiety disorders; K21.9 Gastro-esophageal reflux disease without esophagitis; E66.3 Overweight

== ENCOUNTER 2021-09-12 22:14 | Inpatient (IN) | payer OTHER ==
[~2021-09-12] VITALS: Ht 170.2 cm; Wt 53.6 kg
[~2021-09-12 22:14] MED LIST changes: +ESCI10TA16 PO; -ESCI10TA2 PO; +GABA-282; -GABA-843; +LISI10TA22 PO; -LISI10TA4 PO; +OMEP40CA4 PO; -OMEP40CA97 PO; +QUET50TA4 PO; -QUET5TAB PO
[2021-09-12 22:46] LABS: HEMATOCRIT 40.5 % (42.0-52.0); HEMOGLOBIN 14.1 g/dl (13.5-17.5); MEAN CORPUSCULAR HEMOGLOBIN 31.1 pg (27.0-33.0); MEAN CORPUSCULAR HGB CONC 34.8 g/dl (32.0-36.5); MEAN CORPUSCULAR VOLUME 89.2 fl (80.0-96.0); PLATELET COUNT, AUTOMATED 416 10^3/uL (150-450); RED BLOOD COUNT 4.54 10^6/uL (4.30-6.10); WHITE BLOOD COUNT 9.6 10^3/uL (4.0-10.0)
[2021-09-12] MEDS ORDERED: diphenhydrAMINE 50MG/ML VIAL (J1200) IM ONE (22:55)
[2021-09-12] MEDS ORDERED: HALOPERIDOL 5MG/ML VIAL (J1630 PER 1) IM ONE (22:55)
[2021-09-12] MEDS ORDERED: LORazepam 2 MG/ML VIAL IM ONE (22:55)
[2021-09-12 23:16] LABS: AMPHETAMINES LEVEL URINE POSITIVE (NEGATIVE); BARBITURATES URINE NEGATIVE (NEGATIVE); BENZODIAZEPINES URINE NEGATIVE (NEGATIVE); CANNABINOIDS URINE NEGATIVE (NEGATIVE); COCAINE METABOLITE URINE NEGATIVE (NEGATIVE); METHADONE URINE NEGATIVE (NEGATIVE); OPIATES URINE NEGATIVE (NEGATIVE); PHENCYCLIDINE URINE NEGATIVE (NEGATIVE)
[2021-09-12 23:21] LABS: RSV AMPLIFICATION NEGATIVE (NEGATIVE)
[2021-09-12 23:27] LABS: ACETAMINOPHEN LEVEL < 2.0 UG/ML (10.0-30.0); ALBUMIN 4.4 GM/DL (3.2-5.2); ALT/SGPT 27 U/L (12-78); BILIRUBIN,DIRECT 0.2 MG/DL (0.0-0.2); BILIRUBIN,TOTAL 0.6 MG/DL (0.2-1.0); BLOOD UREA NITROGEN 17 MG/DL (7-18); CALCIUM LEVEL 9.5 MG/DL (8.5-10.1); CARBON DIOXIDE LEVEL 28 MEQ/L (21-32); CHLORIDE LEVEL 108 MEQ/L (98-107); CREATININE FOR GFR 0.88 MG/DL (0.70-1.30); ETHYL ALCOHOL (ETHANOL) < 0.003 % (0.000-0.010); GLOMERULAR FILTRATION RATE > 60.0 (>60); GLUCOSE, FASTING 81 MG/DL (70-100); SALICYLATE LEVEL 2.8 MG/DL (5.0-30.0); SODIUM LEVEL 144 MEQ/L (136-145); TOTAL PROTEIN 7.7 GM/DL (6.4-8.2)
[2021-09-13] MEDS ORDERED: HOME MED LIST COMPLETE! XX SCH (00:05)
[2021-09-13] MEDS ORDERED: MOM 30ML SUSPENSION UDC PO PRN (15:00)
[2021-09-13] MEDS ORDERED: ACETAMINOPHEN TAB 650MG DOSE (2X325MG) PO PRN (15:00)
[2021-09-13] MEDS ORDERED: MAALOX 30 ML SUSP *UDC PO PRN (15:00)
[2021-09-14] MEDS: OLANZapine ORAL DISINTEGRATING TAB 5MG PO PRN ×3 (05:43→21:49)
[2021-09-14 06:28] VITALS: BP 130/62
[2021-09-14] MEDS: PROPRANOLOL 10 MG TAB PO SCH ×3 (09:00→21:50)
[2021-09-14] MEDS: NICOTINE 21MG/24HR 1 EA TRANSDERMAL TD SCH (11:19)
[2021-09-14 16:48] VITALS: BP 132/96
[2021-09-15 07:06] VITALS: BP 119/79
[2021-09-15] MEDS: NICOTINE 21MG/24HR 1 EA TRANSDERMAL TD SCH (09:00)
[2021-09-15 09:51] VITALS: BP 138/72
[2021-09-15] MEDS: PROPRANOLOL 10 MG TAB PO SCH (09:51)
[2021-09-15 10:02] LABS: CHOLESTEROL RISK RATIO 2.857 (<5)
[2021-09-15] MEDS ORDERED: OLAN5ZYD PO (11:17)
[2021-09-15] MEDS ORDERED: NICO21PAT TD (11:17)
[2021-09-15] MEDS ORDERED: PROP10TA56 PO (11:17)
[2021-09-15] MEDS ORDERED: ABIL1TAB11 PO (11:17)
== END 2021-09-15 12:47 | disposition home or self-care (01) | DRG 776 ==
LOC: M ED 22:14 → EEVIPCON 09-13 14:58 → M ED INP 09-13 14:58 → M PSY 09-14 00:01
PROVIDERS: ADMIT Student in an Organized Health Care Education/Training Program; ATTEND Student in an Organized Health Care Education/Training Program
DX: F15.94 Other stimulant use, unspecified with stimulant-induced mood disorder (principal); F32.A Depression, unspecified; F43.10 Post-traumatic stress disorder, unspecified; F41.1 Generalized anxiety disorder; F17.200 Nicotine dependence, unspecified, uncomplicated; Z88.8 Allergy status to other drugs, medicaments and biological substances

== ENCOUNTER 2022-08-05 07:30 | Inpatient (IN) | payer OTHER ==
[~2022-08-05] VITALS: Ht 175.3 cm; Wt 79.5 kg
[~2022-08-05 07:30] MED LIST changes: +ABIL1TAB11 PO; +OLAN1TAB16 PO; +OLAN5ZYD PO; +PROP10TA56 PO
[2022-08-05] MEDS: THIAMINE 100 MG TAB PO SCH ×2 (09:00→21:40)
[2022-08-05] MEDS ORDERED: LORazepam 2 MG TAB PO PRN ×2 (09:15→09:25)
[2022-08-05 09:56] LABS: HEMATOCRIT 42.6 % (42.0-52.0); MEAN CORPUSCULAR HEMOGLOBIN 29.2 pg (27.0-33.0); MEAN CORPUSCULAR HGB CONC 32.9 g/dl (32.0-36.5); MEAN CORPUSCULAR VOLUME 88.8 fl (80.0-96.0); PLATELET COUNT, AUTOMATED 392 10^3/uL (150-450)
[2022-08-05 10:20] LABS: ETHYL ALCOHOL (ETHANOL) 0.005 % (0.000-0.010)
[2022-08-05 10:22] LABS: ACETAMINOPHEN LEVEL < 2.0 UG/ML (10.0-20.0); SALICYLATE LEVEL < 3.0 MG/DL (<30)
[2022-08-05 10:28] LABS: ALBUMIN 3.5 G/DL (3.2-5.2); ALKALINE PHOSPHATASE 77 U/L (46-116); ALT/SGPT 51 U/L (7.0-40); AST/SGOT 25 U/L (<34); BILIRUBIN,DIRECT < 0.1 MG/DL (<0.4); BILIRUBIN,TOTAL 0.2 MG/DL (0.3-1.2); BLOOD UREA NITROGEN 18 MG/DL (9-23); CALCIUM LEVEL 8.8 MG/DL (8.5-10.1); CARBON DIOXIDE LEVEL 25 MMOL/L (20-31); CHLORIDE LEVEL 105 MMOL/L (98-107); CREATININE FOR GFR 0.66 MG/DL (0.70-1.30); GLOMERULAR FILTRATION RATE > 60.0 (>60); GLUCOSE, FASTING 113 MG/DL (60-100); POTASSIUM SERUM 4.5 MMOL/L (3.5-5.1); SODIUM LEVEL 135 MMOL/L (136-145); THYROID STIMULATING HORMONE 0.885 uIU/ML (0.55-4.78); TOTAL PROTEIN 6.7 G/DL (5.7-8.2)
[2022-08-05] MEDS ORDERED: THERTAB21 PO (10:35)
[2022-08-05] MEDS ORDERED: HOME MED LIST COMPLETE! XX SCH (10:50)
[2022-08-06 00:54] LABS: BARBITURATES URINE NEGATIVE (NEGATIVE); BENZODIAZEPINES URINE NEGATIVE (NEGATIVE); CANNABINOIDS URINE NEGATIVE (NEGATIVE); COCAINE METABOLITE URINE NEGATIVE (NEGATIVE); METHADONE URINE NEGATIVE (NEGATIVE); OPIATES URINE NEGATIVE (NEGATIVE); PHENCYCLIDINE URINE NEGATIVE (NEGATIVE)
[2022-08-06 01:01] LABS: AMPHETAMINES LEVEL URINE POSITIVE (NEGATIVE)
[2022-08-06] MEDS: THIAMINE 100 MG TAB PO SCH ×2 (09:41→21:13)
[2022-08-06] MEDS: MULTIVITAMINS/MINERALS THERAP 1 TAB PO SCH (09:41)
[2022-08-06] MEDS: FOLIC ACID 1MG TAB PO SCH (09:42)
[2022-08-06] MEDS ORDERED: OXAZEPAM 15MG CAP PO ONE (13:25)
[2022-08-06 14:54] VITALS: BP 132/92
[2022-08-06] MEDS ORDERED: MAALOX 30 ML SUSP *UDC PO PRN (16:40)
[2022-08-06] MEDS ORDERED: traZODone 50 MG TAB PO PRN (16:40)
[2022-08-06] MEDS ORDERED: MOM 30ML SUSPENSION UDC PO PRN (16:40)
[2022-08-06] MEDS: IBUPROFEN 600MG TAB PO PRN (21:13)
[2022-08-07 06:37] VITALS: BP 148/90
[2022-08-07] MEDS: OLANZapine ORAL DISINTEGRATING TAB 5MG PO PRN ×2 (07:35→13:06)
[2022-08-07] MEDS: FOLIC ACID 1MG TAB PO SCH (07:35)
[2022-08-07] MEDS: THIAMINE 100 MG TAB PO SCH ×2 (07:36→21:44)
[2022-08-07] MEDS: IBUPROFEN 600MG TAB PO PRN (07:36)
[2022-08-07] MEDS: MULTIVITAMINS/MINERALS THERAP 1 TAB PO SCH (07:36)
[2022-08-07] MEDS ORDERED: diphenhydrAMINE 50MG CAP PO PRN (13:15)
[2022-08-07] MEDS ORDERED: LORazepam 2 MG TAB PO PRN (15:10)
[2022-08-07 16:07] VITALS: BP 117/63
[2022-08-07] MEDS: OLANZapine ORAL DISINTEGRATING TAB 5MG PO SCH (21:44)
[2022-08-08 07:03] VITALS: BP 104/72
[2022-08-08] MEDS: OLANZapine ORAL DISINTEGRATING TAB 5MG PO SCH ×2 (09:48→21:42)
[2022-08-08] MEDS: IBUPROFEN 600MG TAB PO PRN (09:49)
[2022-08-08] MEDS: FOLIC ACID 1MG TAB PO SCH (09:53)
[2022-08-08] MEDS: MULTIVITAMINS/MINERALS THERAP 1 TAB PO SCH (09:53)
[2022-08-08] MEDS ORDERED: ONDANSETRON 4MG TAB PO PRN (11:10)
[2022-08-08] MEDS: CYCLOBENZAPRINE 5MG TABLET PO PRN ×2 (12:27→15:47)
[2022-08-08] MEDS: cloNIDine 0.1MG TABLET PO SCH ×2 (12:28→21:42)
[2022-08-08 14:38] VITALS: BP 124/69
[2022-08-08 18:32] VITALS: BP 158/90
[2022-08-09] MEDS: IBUPROFEN 600MG TAB PO PRN (09:36)
[2022-08-09] MEDS: cloNIDine 0.1MG TABLET PO SCH ×2 (09:37→21:49)
[2022-08-09] MEDS: MULTIVITAMINS/MINERALS THERAP 1 TAB PO SCH (09:37)
[2022-08-09] MEDS: FOLIC ACID 1MG TAB PO SCH (09:37)
[2022-08-09] MEDS: OLANZapine ORAL DISINTEGRATING TAB 5MG PO SCH ×2 (09:37→21:44)
[2022-08-09] MEDS: CYCLOBENZAPRINE 5MG TABLET PO PRN (13:58)
[2022-08-09 14:29] VITALS: BP 119/72
[2022-08-09 18:24] VITALS: BP 117/71
[2022-08-09 21:54] VITALS: BP 123/71
[2022-08-10 06:39] VITALS: BP 112/77
[2022-08-10 06:46] VITALS: BP 112/77
[2022-08-10] MEDS: MULTIVITAMINS/MINERALS THERAP 1 TAB PO SCH (10:24)
[2022-08-10] MEDS: cloNIDine 0.1MG TABLET PO SCH ×2 (10:24→20:59)
[2022-08-10] MEDS: FOLIC ACID 1MG TAB PO SCH (10:24)
[2022-08-10] MEDS: OLANZapine ORAL DISINTEGRATING TAB 5MG PO SCH (10:24)
[2022-08-10] MEDS ORDERED: CYCLOBENZAPRINE 5MG TABLET PO PRN (13:25)
[2022-08-10 17:35] VITALS: BP 120/67
[2022-08-10] MEDS: OLANZapine 5 MG TAB PO SCH (20:59)
[2022-08-10] MEDS: SERTRALINE HCL 50 MG TAB PO SCH (20:59)
[2022-08-11 06:47] VITALS: BP 120/78
[2022-08-11] MEDS: cloNIDine 0.1MG TABLET PO SCH ×2 (08:50→21:33)
[2022-08-11] MEDS: MULTIVITAMINS/MINERALS THERAP 1 TAB PO SCH (08:52)
[2022-08-11] MEDS: FOLIC ACID 1MG TAB PO SCH (08:52)
[2022-08-11 18:09] VITALS: BP 109/59
[2022-08-11] MEDS: OLANZapine 5 MG TAB PO SCH (21:32)
[2022-08-11 21:33] VITALS: BP 109/59
[2022-08-11] MEDS: SERTRALINE HCL 50 MG TAB PO SCH (21:33)
[2022-08-12] MEDS: FOLIC ACID 1MG TAB PO SCH (09:00)
[2022-08-12] MEDS: MULTIVITAMINS/MINERALS THERAP 1 TAB PO SCH (09:00)
[2022-08-12] MEDS: cloNIDine 0.1MG TABLET PO SCH (09:00)
[2022-08-12] MEDS ORDERED: SERT50TA29 PO (10:23)
[2022-08-12] MEDS ORDERED: CLONI1TA PO (10:23)
[2022-08-12] MEDS ORDERED: TRAZ-252 PO (10:23)
== END 2022-08-12 12:58 | disposition home or self-care (01) | DRG 755 ==
LOC: M ED 07:30 → M ED INP 08-06 13:21 → M PSY 08-06 15:02
PROVIDERS: ADMIT Psychiatry & Neurology Psychiatry; ATTEND Psychiatry & Neurology Psychiatry
DX: F43.10 Post-traumatic stress disorder, unspecified (principal); F41.1 Generalized anxiety disorder; F15.959 Other stimulant use, unspecified with stimulant-induced psychotic disorder, unspecified; F17.210 Nicotine dependence, cigarettes, uncomplicated; R45.851 Suicidal ideations; B35.1 Tinea unguium; G62.9 Polyneuropathy, unspecified; Z20.822 Contact with and (suspected) exposure to COVID-19; Z88.8 Allergy status to other drugs, medicaments and biological substances; Z59.00 Homelessness unspecified; Z81.1 Family history of alcohol abuse and dependence; Z56.0 Unemployment, unspecified

== ENCOUNTER 2022-08-23 14:34 | Observation (INO) | payer OTHER ==
[~2022-08-23] VITALS: Ht 177.8 cm; Wt 87.2 kg
[2022-08-23] VITALS (7 sets, daily range): BP systolic 76–93; BP diastolic 46–54
[~2022-08-23 14:34] MED LIST changes: +SERT50TA29 PO; +THERTAB21 PO
[2022-08-23] MEDS ORDERED: NS 1,000 ML IV SCH (14:45)
[2022-08-23] MEDS ORDERED: CHARCOAL ACTIVATED LIQUID 25GM/120ML BTL PO ONE (14:45)
[2022-08-23] MEDS ORDERED: NS 1,000 ML IV ONE (15:40)
[2022-08-23 15:44] LABS: BASO % 0.6 % (0.0-1.0); EOS # 0.3 10^3/uL (0.0-0.5); HEMOGLOBIN 11.5 g/dl (13.5-17.5); LYMPH % 37.8 % (24.0-44.0); MEAN CORPUSCULAR HEMOGLOBIN 29.7 pg (27.0-33.0); MEAN CORPUSCULAR HGB CONC 33.8 g/dl (32.0-36.5); MEAN CORPUSCULAR VOLUME 87.9 fl (80.0-96.0); MONO # 0.7 10^3/uL (0.0-0.8); MONO % 12.9 % (2.0-8.0); NEUTROPHILS # 2.3 10^3/uL (1.5-8.5); NEUTROPHILS % 43.5 % (36.0-66.0); PLATELET COUNT, AUTOMATED 318 10^3/uL (150-450); RED BLOOD COUNT 3.87 10^6/uL (4.30-6.10); WHITE BLOOD COUNT 5.2 10^3/uL (4.0-10.0)
[2022-08-23 16:13] LABS: ETHYL ALCOHOL (ETHANOL) 0.003 % (0.000-0.010)
[2022-08-23 16:15] LABS: ACETAMINOPHEN LEVEL < 2.0 UG/ML (10.0-20.0); ALBUMIN 3.2 G/DL (3.2-5.2); ALKALINE PHOSPHATASE 62 U/L (46-116); ALT/SGPT 45 U/L (7.0-40); AST/SGOT 22 U/L (<34); BILIRUBIN,DIRECT < 0.1 MG/DL (<0.4); BILIRUBIN,TOTAL 0.2 MG/DL (0.3-1.2); BLOOD UREA NITROGEN 14 MG/DL (9-23); CALCIUM LEVEL 8.7 MG/DL (8.5-10.1); CARBON DIOXIDE LEVEL 28 MMOL/L (20-31); CHLORIDE LEVEL 107 MMOL/L (98-107); CPK CREATINE PHOSPHOKINASE 168 U/L (46-171); GLOMERULAR FILTRATION RATE > 60.0 (>60); GLUCOSE, FASTING 100 MG/DL (60-100); POTASSIUM SERUM 4.4 MMOL/L (3.5-5.1); SALICYLATE LEVEL < 3.0 MG/DL (<30); SODIUM LEVEL 140 MMOL/L (136-145)
[2022-08-23 16:19] LABS: THYROID STIMULATING HORMONE 1.775 uIU/ML (0.55-4.78)
[2022-08-23] MEDS ORDERED: SERT-141 PO (16:46)
[2022-08-23] MEDS ORDERED: TRAZ-186 PO (16:46)
[2022-08-23] MEDS ORDERED: CLON-412 PO (16:46)
[2022-08-23] MEDS ORDERED: HOME MED LIST COMPLETE! XX SCH (16:50)
[2022-08-23] MEDS ORDERED: GLUCOSE 4GM CHEW TABLET PO PRN (17:10)
[2022-08-23] MEDS ORDERED: GLUCAGON INJ 1MG VIAL SC PRN (17:10)
[2022-08-23] MEDS ORDERED: DEXTROSE 50% 50ML SYRINGE IV PRN (17:10)
[2022-08-23 17:31] LABS: RSV AMPLIFICATION NEGATIVE (NEGATIVE)
[2022-08-23] MEDS: NS 1,000 ML IV SCH ×3 (19:08→21:35)
[2022-08-23] MEDS ORDERED: MIDODRINE 5 MG TAB PO ONE (19:20)
[2022-08-23] MEDS: INSULIN LISPRO (NovoLOG) PER UNIT SC SCH (20:29)
[2022-08-23] MEDS: HEPARIN SOD (PORCINE) 5000UNITS/ML 1ML VIAL/SYRINGE SC SCH (22:54)
[2022-08-24] VITALS: BP 98/64
[2022-08-24] MEDS: NS 1,000 ML IV SCH ×3 (00:27→12:15)
[2022-08-24] MEDS: INSULIN LISPRO (NovoLOG) PER UNIT SC SCH ×4 (00:53→17:42)
[2022-08-24 01:19] LABS: BARBITURATES URINE NEGATIVE (NEGATIVE); BENZODIAZEPINES URINE NEGATIVE (NEGATIVE); CANNABINOIDS URINE NEGATIVE (NEGATIVE); PHENCYCLIDINE URINE NEGATIVE (NEGATIVE)
[2022-08-24 01:20] LABS: COCAINE METABOLITE URINE NEGATIVE (NEGATIVE); METHADONE URINE NEGATIVE (NEGATIVE); OPIATES URINE NEGATIVE (NEGATIVE)
[2022-08-24 01:22] LABS: AMPHETAMINES LEVEL URINE POSITIVE (NEGATIVE)
[2022-08-24 03:43] VITALS: BP 96/58
[2022-08-24] MEDS: HEPARIN SOD (PORCINE) 5000UNITS/ML 1ML VIAL/SYRINGE SC SCH ×3 (05:38→22:00)
[2022-08-24 05:57] LABS: HEMATOCRIT 35.5 % (42.0-52.0); HEMOGLOBIN 11.8 g/dl (13.5-17.5); MEAN CORPUSCULAR HEMOGLOBIN 29.8 pg (27.0-33.0); MEAN CORPUSCULAR HGB CONC 33.2 g/dl (32.0-36.5); MEAN CORPUSCULAR VOLUME 89.6 fl (80.0-96.0); PLATELET COUNT, AUTOMATED 320 10^3/uL (150-450); RED BLOOD COUNT 3.96 10^6/uL (4.30-6.10); WHITE BLOOD COUNT 4.9 10^3/uL (4.0-10.0)
[2022-08-24 06:25] LABS: BLOOD UREA NITROGEN 11 MG/DL (9-23); CALCIUM LEVEL 8.1 MG/DL (8.5-10.1); CARBON DIOXIDE LEVEL 24 MMOL/L (20-31); CHLORIDE LEVEL 109 MMOL/L (98-107); CREATININE FOR GFR 0.58 MG/DL (0.70-1.30); GLOMERULAR FILTRATION RATE > 60.0 (>60); GLUCOSE, FASTING 117 MG/DL (60-100); MAGNESIUM LEVEL 1.6 MG/DL (1.8-2.4); PHOSPHORUS LEVEL 2.5 MG/DL (2.5-4.9); POTASSIUM SERUM 4.4 MMOL/L (3.5-5.1); SODIUM LEVEL 140 MMOL/L (136-145)
[2022-08-24] MEDS: MAG SULF 1GM/100ML (MAG RUN) 1 GM in IV 1 EA IV SCH ×2 (06:52→06:59)
[2022-08-24 07:40] VITALS: BP 108/58
[2022-08-24] MEDS ORDERED: MAALOX 30 ML SUSP *UDC PO ONE (12:55)
[2022-08-24] MEDS ORDERED: ONDANSETRON 4MG 2ML VIAL IV ONE ×2 (12:55→22:45)
[2022-08-24 12:58] VITALS: BP 97/54
[2022-08-24] MEDS ORDERED: ISOVUE-370 76% 100ML VIAL As Ordered ONE (13:02)
[2022-08-24] MEDS ORDERED: LORazepam 0.5 MG TAB PO ONE (13:15)
[2022-08-24] MEDS: PANTOPRAZOLE 40MG TAB (PROTONIX) PO SCH (14:06)
[2022-08-24] MEDS ORDERED: BISACODYL 10MG SUPP PR ONE (16:00)
[2022-08-24 16:49] VITALS: BP 115/67
[2022-08-24] MEDS ORDERED: MIRA3350 PO (17:15)
[2022-08-24] MEDS ORDERED: MM S100C PO (17:15)
[2022-08-24] MEDS: MIRALAX *UNIT DOSE* 17GM PACKET PO SCH (17:27)
[2022-08-24] MEDS: SENOKOT S TAB PO SCH ×2 (17:27→20:26)
[2022-08-24 19:55] VITALS: BP 106/58
[2022-08-25 00:47] VITALS: BP 112/70
[2022-08-25 05:40] VITALS: BP 139/84
[2022-08-25] MEDS: INSULIN LISPRO (NovoLOG) PER UNIT SC SCH ×5 (06:00→23:19)
[2022-08-25] MEDS: HEPARIN SOD (PORCINE) 5000UNITS/ML 1ML VIAL/SYRINGE SC SCH ×3 (06:00→21:14)
[2022-08-25 06:16] LABS: HEMATOCRIT 34.1 % (42.0-52.0); HEMOGLOBIN 11.2 g/dl (13.5-17.5); MEAN CORPUSCULAR HEMOGLOBIN 29.5 pg (27.0-33.0); MEAN CORPUSCULAR HGB CONC 32.8 g/dl (32.0-36.5); MEAN CORPUSCULAR VOLUME 89.7 fl (80.0-96.0); PLATELET COUNT, AUTOMATED 297 10^3/uL (150-450); WHITE BLOOD COUNT 5.6 10^3/uL (4.0-10.0)
[2022-08-25 06:48] LABS: BLOOD UREA NITROGEN 10 MG/DL (9-23); CALCIUM LEVEL 7.9 MG/DL (8.5-10.1); CARBON DIOXIDE LEVEL 29 MMOL/L (20-31); CHLORIDE LEVEL 109 MMOL/L (98-107); CREATININE FOR GFR 0.61 MG/DL (0.70-1.30); GLOMERULAR FILTRATION RATE > 60.0 (>60); GLUCOSE, FASTING 92 MG/DL (60-100); MAGNESIUM LEVEL 1.6 MG/DL (1.8-2.4); PHOSPHORUS LEVEL 3.1 MG/DL (2.5-4.9); POTASSIUM SERUM 3.9 MMOL/L (3.5-5.1); SODIUM LEVEL 142 MMOL/L (136-145)
[2022-08-25] MEDS ORDERED: MAGNESIUM OXIDE 400MG TAB (MAG-OX) PO ONE (08:00)
[2022-08-25] MEDS: MIRALAX *UNIT DOSE* 17GM PACKET PO SCH (09:00)
[2022-08-25] MEDS: SENOKOT S TAB PO SCH ×2 (09:00→21:00)
[2022-08-25] MEDS: PANTOPRAZOLE 40MG TAB (PROTONIX) PO SCH (09:18)
[2022-08-25] MEDS ORDERED: LORazepam 0.5 MG TAB PO ONE (10:40)
[2022-08-25 12:38] VITALS: BP 147/87
[2022-08-25] MEDS ORDERED: PROT1TAB2 PO (13:08)
[2022-08-25] MEDS ORDERED: CARA1TAB6 PO (13:08)
[2022-08-25 20:00] VITALS: BP 119/77
[2022-08-25] MEDS ORDERED: SERTRALINE HCL 50 MG TAB PO SCH (21:00)
[2022-08-26 03:58] VITALS: BP 134/82
[2022-08-26] MEDS: HEPARIN SOD (PORCINE) 5000UNITS/ML 1ML VIAL/SYRINGE SC SCH (05:39)
[2022-08-26] MEDS: INSULIN LISPRO (NovoLOG) PER UNIT SC SCH (05:45)
[2022-08-26 08:14] VITALS: BP 133/74
[2022-08-26] MEDS: PANTOPRAZOLE 40MG TAB (PROTONIX) PO SCH (09:00)
[2022-08-26] MEDS: SENOKOT S TAB PO SCH (09:00)
[2022-08-26] MEDS: MIRALAX *UNIT DOSE* 17GM PACKET PO SCH (09:20)
[2022-08-26] MEDS ORDERED: OLANZapine 2.5MG TABLET PO ONE (10:00)
== END 2022-08-26 11:11 | disposition home or self-care (01) ==
LOC: M ED 14:34 → M ED INP 14:35 → INTOOBSV 16:34 → UNDOADMOB 16:34 → M ED INP 16:34 → M ED 17:05 → M PCU 18:48 → M ED INP 18:48 → M PCU 18:48
PROVIDERS: ADMIT Internal Medicine; ATTEND Internal Medicine
DX: G93.40 Encephalopathy, unspecified (principal); T43.214A Poisoning by selective serotonin and norepinephrine reuptake inhibitors, undetermined, initial encounter; T46.5X4A Poisoning by other antihypertensive drugs, undetermined, initial encounter; I95.2 Hypotension due to drugs; F32.A Depression, unspecified; F43.10 Post-traumatic stress disorder, unspecified; F10.90 Alcohol use, unspecified, uncomplicated; F41.9 Anxiety disorder, unspecified; D64.9 Anemia, unspecified; E87.8 Other disorders of electrolyte and fluid balance, not elsewhere classified; K59.00 Constipation, unspecified; K21.9 Gastro-esophageal reflux disease without esophagitis; F19.90 Other psychoactive substance use, unspecified, uncomplicated; F17.200 Nicotine dependence, unspecified, uncomplicated; Z79.899 Other long term (current) drug therapy; Z88.8 Allergy status to other drugs, medicaments and biological substances
CPT/HCPCS: 36415; 70450; 74177; 80048; 80076; 80143; 80307; 82077; 82550; 83605; 83735; 84100; 84443; 85025; 85027; 87631; 93005; 93041; 94760; 96361; 96372; 96374; 96375; 96376; 99285; J1100; J1815; J2405; J3475; Q9967

== ENCOUNTER 2022-11-23 11:27 | Inpatient (IN) | payer MEDICAID, OTHER ==
[~2022-11-23] VITALS: Ht 175.3 cm; Wt 79.5 kg
[~2022-11-23 11:27] MED LIST changes: +CARA1TAB6 PO; +CLON-412 PO; +MIRA3350 PO; +MM S100C PO; +PROT1TAB2 PO; +TRAZ-186 PO
[2022-11-23 14:19] LABS: HEMATOCRIT 38.9 % (42.0-52.0); HEMOGLOBIN 12.9 g/dl (13.5-17.5); MEAN CORPUSCULAR HEMOGLOBIN 28.9 pg (27.0-33.0); MEAN CORPUSCULAR HGB CONC 33.2 g/dl (32.0-36.5); MEAN CORPUSCULAR VOLUME 87.2 fl (80.0-96.0); PLATELET COUNT, AUTOMATED 479 10^3/uL (150-450); RED BLOOD COUNT 4.46 10^6/uL (4.30-6.10); WHITE BLOOD COUNT 10.4 10^3/uL (4.0-10.0)
[2022-11-23 14:36] LABS: BARBITURATES URINE NEGATIVE (NEGATIVE); BENZODIAZEPINES URINE NEGATIVE (NEGATIVE); COCAINE METABOLITE URINE NEGATIVE (NEGATIVE); PHENCYCLIDINE URINE NEGATIVE (NEGATIVE)
[2022-11-23 14:37] LABS: CANNABINOIDS URINE NEGATIVE (NEGATIVE); ETHYL ALCOHOL (ETHANOL) < 0.003 % (0.000-0.010); METHADONE URINE NEGATIVE (NEGATIVE); OPIATES URINE NEGATIVE (NEGATIVE)
[2022-11-23 14:38] LABS: AMPHETAMINES LEVEL URINE POSITIVE (NEGATIVE); SALICYLATE LEVEL < 3.0 MG/DL (<30)
[2022-11-23 14:39] LABS: ACETAMINOPHEN LEVEL < 2.0 UG/ML (10.0-20.0); ALBUMIN 3.5 G/DL (3.2-5.2); ALKALINE PHOSPHATASE 90 U/L (46-116); ALT/SGPT 58 U/L (7.0-40); AST/SGOT 53 U/L (<34); BILIRUBIN,DIRECT 0.2 MG/DL (<0.4); BILIRUBIN,TOTAL 0.6 MG/DL (0.3-1.2); BLOOD UREA NITROGEN 16 MG/DL (9-23); CARBON DIOXIDE LEVEL 24 MMOL/L (20-31); CHLORIDE LEVEL 104 MMOL/L (98-107); CREATININE FOR GFR 0.76 MG/DL (0.70-1.30); GLOMERULAR FILTRATION RATE > 60.0 (>60); GLUCOSE, FASTING 86 MG/DL (60-100); POTASSIUM SERUM 4.1 MMOL/L (3.5-5.1); SODIUM LEVEL 136 MMOL/L (136-145); TOTAL PROTEIN 7.7 G/DL (5.7-8.2)
[2022-11-23 14:42] LABS: THYROID STIMULATING HORMONE 1.056 uIU/ML (0.55-4.78)
[2022-11-23] MEDS ORDERED: HALOPERIDOL 5MG/ML 1ML VIAL IM ONE (15:55)
[2022-11-23] MEDS ORDERED: MIDAZOLAM INJ 2MG/2ML VIAL IM ONE (15:55)
[2022-11-23] MEDS ORDERED: LORazepam 1 MG TAB PO STA (18:06)
[2022-11-23] MEDS ORDERED: MED REC IN PROGRESS XX SCH (19:05)
[2022-11-23] MEDS ORDERED: MAALOX 30 ML SUSP *UDC PO PRN (22:40)
[2022-11-23] MEDS ORDERED: MOM 30ML SUSPENSION UDC PO PRN (22:40)
[2022-11-23] MEDS ORDERED: IBUPROFEN 400MG TAB PO PRN (22:40)
[2022-11-23] MEDS ORDERED: traZODone 50 MG TAB PO PRN (22:40)
[2022-11-23] MEDS ORDERED: OLANZapine 5 MG TAB PO PRN (22:40)
[2022-11-23] MEDS ORDERED: ACETAMINOPHEN TAB 650MG DOSE (2X325MG) PO PRN (22:40)
[2022-11-23] MEDS ORDERED: diphenhydrAMINE 50MG/ML VIAL IM STA (23:21)
[2022-11-23] MEDS ORDERED: HALOPERIDOL 5MG/ML 1ML VIAL IM STA (23:21)
[2022-11-23] MEDS ORDERED: LORazepam 2 MG/ML 1ML VIAL IM STA (23:21)
[2022-11-23 23:30] VITALS: BP 132/68; TEMP 97.8; O2SAT 100
[2022-11-23 23:45] VITALS: BP 132/70; TEMP 97.6; O2SAT 100
[2022-11-24] VITALS: BP 125/66; TEMP 97.7; O2SAT 100
[2022-11-24 00:15] VITALS: BP 120/59; TEMP 97.7; O2SAT 100
[2022-11-24 00:30] VITALS: BP 118/59; O2SAT 100
[2022-11-24 00:45] VITALS: BP 155/85; O2SAT 97
[2022-11-24 01:00] VITALS: BP 162/87
[2022-11-24 02:55] VITALS: BP 159/84; TEMP 97.6; O2SAT 100
[2022-11-24] MEDS: OLANZapine 5 MG TAB PO SCH (21:18)
[2022-11-25] MEDS ORDERED: [UNRECOGNIZED DRUG - OTHER] (10:18)
[2022-11-25] MEDS ORDERED: HOME MED LIST COMPLETE! XX SCH (10:20)
[2022-11-25 12:00] LABS: HEMOGLOBIN 12.7 g/dl (13.5-17.5); MEAN CORPUSCULAR HEMOGLOBIN 29.1 pg (27.0-33.0); MEAN CORPUSCULAR HGB CONC 32.6 g/dl (32.0-36.5); MEAN CORPUSCULAR VOLUME 89.4 fl (80.0-96.0); PLATELET COUNT, AUTOMATED 401 10^3/uL (150-450); RED BLOOD COUNT 4.36 10^6/uL (4.30-6.10); WHITE BLOOD COUNT 6.3 10^3/uL (4.0-10.0)
[2022-11-25 12:25] LABS: ALBUMIN 2.9 G/DL (3.2-5.2); ALKALINE PHOSPHATASE 75 U/L (46-116); ALT/SGPT 49 U/L (7.0-40); AST/SGOT 33 U/L (<34); BILIRUBIN,TOTAL 0.3 MG/DL (0.3-1.2); BLOOD UREA NITROGEN 16 MG/DL (9-23); CALCIUM LEVEL 8.2 MG/DL (8.5-10.1); CARBON DIOXIDE LEVEL 28 MMOL/L (20-31); CHLORIDE LEVEL 105 MMOL/L (98-107); CREATININE FOR GFR 0.78 MG/DL (0.70-1.30); GLOMERULAR FILTRATION RATE > 60.0 (>60); GLUCOSE, FASTING 124 MG/DL (60-100); POTASSIUM SERUM 4.1 MMOL/L (3.5-5.1); SODIUM LEVEL 139 MMOL/L (136-145); TOTAL PROTEIN 6.7 G/DL (5.7-8.2)
[2022-11-25] MEDS: OLANZapine 5 MG TAB PO SCH ×2 (13:30→22:05)
[2022-11-25 18:00] VITALS: BP 129/61; TEMP 97.9
[2022-11-26 07:09] VITALS: BP 127/74; TEMP 97.4; O2SAT 97
[2022-11-26] MEDS: OLANZapine 5 MG TAB PO SCH ×2 (10:32→21:00)
[2022-11-27 07:00] VITALS: BP 125/67; TEMP 97.5; O2SAT 98
[2022-11-27] MEDS: OLANZapine 5 MG TAB PO SCH ×2 (09:20→22:23)
[2022-11-27] MEDS: diphenhydrAMINE 25MG CAP PO PRN (18:19)
[2022-11-28] MEDS: OLANZapine 5 MG TAB PO SCH (10:17)
[2022-11-28] MEDS ORDERED: NICO21DI38 TOP (10:52)
[2022-11-28] MEDS ORDERED: OLAN1TAB16 PO (10:52)
[2022-11-28] MEDS: diphenhydrAMINE 25MG CAP PO PRN (11:38)
== END 2022-11-28 12:00 | disposition home or self-care (01) | DRG 753 ==
LOC: M ED 11:27 → M ED INP 19:43 → M PSY 22:22
PROVIDERS: ADMIT Student in an Organized Health Care Education/Training Program; ATTEND Student in an Organized Health Care Education/Training Program
DX: F39 Unspecified mood [affective] disorder (principal); Z78.1 Physical restraint status; R45.851 Suicidal ideations; F43.10 Post-traumatic stress disorder, unspecified; F41.1 Generalized anxiety disorder; F15.159 Other stimulant abuse with stimulant-induced psychotic disorder, unspecified; Z20.822 Contact with and (suspected) exposure to COVID-19; R74.01 Elevation of levels of liver transaminase levels; D72.829 Elevated white blood cell count, unspecified; L98.9 Disorder of the skin and subcutaneous tissue, unspecified; F17.200 Nicotine dependence, unspecified, uncomplicated; K21.9 Gastro-esophageal reflux disease without esophagitis; Z88.8 Allergy status to other drugs, medicaments and biological substances; Z56.0 Unemployment, unspecified; Z59.00 Homelessness unspecified; Z91.51 Personal history of suicidal behavior; Z81.1 Family history of alcohol abuse and dependence; Z79.899 Other long term (current) drug therapy; Z63.8 Other specified problems related to primary support group; Z83.3 Family history of diabetes mellitus

== ENCOUNTER 2022-12-13 22:07 | Emergency (ER) | payer OTHER ==
[~2022-12-13] VITALS: Ht 175.3 cm; Wt 81.8 kg
[~2022-12-13 22:07] MED LIST changes: +NICO21DI38 TOP; +[UNRECOGNIZED DRUG - OTHER]
[2022-12-14] MEDS ORDERED: AMOX875T2 PO (09:20)
[2022-12-14 09:28] VITALS: BP 121/57; TEMP 98.5; O2SAT 97
== END 2022-12-14 09:35 | disposition home or self-care (01) ==
LOC: EDBD 22:07 → M ED 22:07
DX: H66.003 Acute suppurative otitis media without spontaneous rupture of ear drum, bilateral (principal); F19.10 Other psychoactive substance abuse, uncomplicated; F43.10 Post-traumatic stress disorder, unspecified; F32.A Depression, unspecified; F17.200 Nicotine dependence, unspecified, uncomplicated; Z88.8 Allergy status to other drugs, medicaments and biological substances; Z79.899 Other long term (current) drug therapy

== ENCOUNTER → 2024-08-14 | Outpatient (CLI) | payer MEDICAID, OTHER ==
[~2024-08-14] MED LIST changes: +AMOX875T2 PO; +GABA-1172; -GABA-282
[2024-08-14 17:36] LABS: BASO % 0.5 % (0.0-1.0); EOS # 0.2 10^3/uL (0.0-0.5); EOS % 3.1 % (0.0-3.0); HEMOGLOBIN 12.6 g/dl (13.5-17.5); LYMPH # 2.5 10^3/uL (1.5-5.0); LYMPH % 37.5 % (24.0-44.0); MEAN CORPUSCULAR HEMOGLOBIN 29.1 pg (27.0-33.0); MEAN CORPUSCULAR HGB CONC 33.2 g/dl (32.0-36.5); MEAN CORPUSCULAR VOLUME 87.8 fl (80.0-96.0); MONO # 0.7 10^3/uL (0.0-0.8); MONO % 11.3 % (2.0-8.0); NEUTROPHILS # 3.1 10^3/uL (1.5-8.5); NEUTROPHILS % 47.6 % (36.0-66.0); PLATELET COUNT, AUTOMATED 350 10^3/uL (150-450); RED BLOOD COUNT 4.33 10^6/uL (4.30-6.10); WHITE BLOOD COUNT 6.5 10^3/uL (4.0-10.0)
[2024-08-14 17:47] LABS: ALBUMIN 3.8 G/DL (3.2-5.2); ALKALINE PHOSPHATASE 62 U/L (40-129); ALT/SGPT 44 U/L (7.0-40); AST/SGOT 29 U/L (<34); BILIRUBIN,TOTAL 0.4 MG/DL (0.3-1.2); BLOOD UREA NITROGEN 14 MG/DL (9-23); CALCIUM LEVEL 8.9 MG/DL (8.5-10.1); CARBON DIOXIDE LEVEL 30 MMOL/L (20-31); CHLORIDE LEVEL 103 MMOL/L (98-107); CREATININE FOR GFR 0.68 MG/DL (0.70-1.30); GLOMERULAR FILTRATION RATE > 60.0 (>60); GLUCOSE, FASTING 104 MG/DL (60-100); POTASSIUM SERUM 4.3 MMOL/L (3.5-5.1); SODIUM LEVEL 141 MMOL/L (136-145); TOTAL PROTEIN 7.2 G/DL (5.7-8.2)
[2024-08-14 17:49] LABS: INR 0.85
[2024-08-14 18:07] LABS: HEPATITIS B SURFACE ANTIGEN NEGATIVE (NEGATIVE)
[2024-08-14 18:13] LABS: HEPATITIS B SURFACE ANTIBODY NEGATIVE (POSITIVE)
[2024-08-14 18:19] LABS: HIV 1&2 SCREEN NEGATIVE (NEGATIVE)
[2024-08-17 14:12] LABS: HEPATITIS A IgG TOTAL REACTIVE (NON-REACTIVE)
[2024-08-18 21:08] LABS: HEPATITIS C VIRUS GENOTYPE 3 (.)
[2024-08-19 12:17] LABS: HCV RNA QUANTITATION 500000 IU/mL (NOT DETECTED)
== END ==
LOC: M LAB 14:58
PROVIDERS: ATTEND Emergency Medicine
DX: B18.2 Chronic viral hepatitis C (principal)